=== PATIENT | female | born 1940 | race Caucasian/White ===

== ENCOUNTER 2019-09-20 07:39 | Outpatient (CLI) | payer MEDICARE, SELFPAY ==
[2019-09-20 08:11] LABS: Basophils Absolute Auto 0.1 K/mm3 (0.0-0.1); Basophils Percent Auto 0.7 % (0.2-1.2); Eosinophils Absolute Auto 0.2 K/mm3 (0-0.3); Eosinophils Percent Auto 2.4 % (0-4.4); Hematocrit 41.9 % (37.0-47.0); Hemoglobin 13.3 g/dL (12.0-15.0); Immature Granulocyte Absolute 0.02 K/mm3 (0.00-0.031); Immature Granulocyte Percent A 0.3 % (0-0.5); Lymphocytes Absolute Auto 2.47 K/mm3 (0.9-3.2); Mean Corpuscular HGB Conc 31.7 g/dl (32-36); Mean Corpuscular Hemoglobin 28.5 pg (26-34); Mean Corpuscular Volume 89.7 fl (80-100); Mean Platelet Volume 9.8 fl (7.4-10.4); Monocytes Absolute Auto 0.6 K/mm3 (0.1-0.6); Monocytes Percent Auto 8.3 % (2.6-8.5); Neutrophils Absolute Auto 4.2 K/mm3 (1.3-6.7); Neutrophils Percent Auto 55.3 % (45.5-73.1); Platelet Count Result 304 k/mm3 (150-375); Red Blood Count 4.67 M/mm3 (4.2-5.4); Red Cell Distribution Width 13.4 % (11.5-14.5); White Blood Count 7.5 K/mm3 (4.5-10.0)
[2019-09-20 08:23] LABS: Alanine Aminotransferase 26 U/L (4-35); Albumin Level 4.6 g/dL (3.5-5.1); Alkaline Phosphatase 76 U/L (38-126); Aspartate Amino Transferase 32 U/L (14-36); Bilirubin,Total 0.6 mg/dL (0.2-1.3); Blood Urea Nitrogen 26 mg/dL (7-17); Calcium 9.6 mg/dL (8.4-10.2); Carbon Dioxide 33 mmol/L (22-30); Chloride 98 mmol/L (98-107); Cholesterol 278 mg/dL (0-200); Estimated Glomerular Filt Rate > 60; Glucose 169 mg/dL (65-105); HDL Direct 49 mg/dL; Potassium 3.4 mmol/L (3.4-5.0); Sodium 138 mmol/L (137-145); Triglycerides 160 mg/dL (<150)
[2019-09-20 08:35] LABS: LDL Cholesterol Direct 172 mg/dL
[2019-09-20 08:41] LABS: Hemoglobin A1C 6.6 % (<5.7)
[2019-09-20 08:56] LABS: MALB Creatinine Ratio 31.4 mg/g (0-30); Microalbumin Urine Random 56.8 mg/L (0-16.7)
[2019-09-20 09:04] LABS: Vitamin D 25 Hydroxy 63.4 ng/mL
== END 2019-09-20 07:40 | disposition home or self-care (01) ==
PROVIDERS: PCP Internal Medicine; Visit Provider Internal Medicine
DX: E11.69 Type 2 diabetes mellitus with other specified complication (principal); E55.9 Vitamin D deficiency, unspecified; E78.5 Hyperlipidemia, unspecified; Z79.899 Other long term (current) drug therapy
CPT/HCPCS: 36415; 80053; 80061; 82043; 82306; 83036; 84443; 85025

== ENCOUNTER 2019-10-14 08:40 | Outpatient (CLI) | payer MEDICARE, SELFPAY ==
--- NOTE | 2019-10-14 09:07 | ECHO_ITS ---
Patient Info Name: May Hameed Age: 78 years : 1940 Gender: Female Ht: 64 in Wt: 230 lbs BSA: 2.22 m2 HR: 60 bpm BP: 154 / 85 mmHg Technical Quality: Good Exam Date: 10/14/2019 9:28 AM Exam Location: [facility] Pulmonary Patient Status: Outpatient Admit Date: 10/14/2019 Staff Ordering Physician: Kristofer Carter MD Boom Master: Regulo Arnett, SHERRIE, RT Attending Provider: Kristofer Carter MD Exam Type: CA echo doppler color flow Study Info Indications R06.02 - Shortness of breath Complete two-dimensional, color flow and Doppler transthoracic echocardiogram is performed. Summary 1. Left ventricular chamber dimension is normal. 2. Left ventricular systolic function is normal, estimated at 60-65%. 3. The left ventricular diastolic function is abnormal. 4. E/e' 11 is mildly elevated. 5. Global longitudinal strain is normal at -18.9%. 6. Right atrial chamber dimension is mildly enlarged. 7. There is mild aortic valve sclerosis. 8. The mitral valve has mildly calcified annulus. 9. There is mild mitral valve regurgitation. 10. There is mild tricuspid valve regurgitation. 11. No pulmonary hypertension, estimated pulmonary arterial systolic pressure is 32 mmHg. 12. Dilated inferior vena cava with >50% collapse upon inspiration consistent with elevated right atrial pressure, 10 mmHg. Left Ventricle E/e' 11 is mildly elevated. Global longitudinal strain is normal at -18.9%. Left ventricular chamber dimension is normal. Left ventricular systolic function is normal, estimated at 60-65%. The left ventricular diastolic function is abnormal. Right Ventricle Right ventricular chamber dimension is normal. Right ventricular systolic function is normal. Left Atria Left atrial chamber dimension is normal. Right Atria Right atrial chamber dimension is mildly enlarged. Aortic Valve The aortic valve is probable trileaflet. There is mild aortic valve sclerosis. There is no aortic valve stenosis. There is no aortic valve regurgitation. Pulmonic Valve There is no pulmonic regurgitation. Mitral Valve The mitral valve has mildly calcified annulus. There is no mitral valve stenosis. There is mild mitral valve regurgitation. Tricuspid Valve There is mild tricuspid valve regurgitation. No pulmonary hypertension, estimated pulmonary arterial systolic pressure is 32 mmHg. Pericardium/Pleural There is no pericardial effusion. Inferior Vena Cava Dilated inferior vena cava with >50% collapse upon inspiration consistent with elevated right atrial pressure, 10 mmHg. Aorta The aortic root size at the sinus of Valsalva is normal. Left Ventricular Outflow Tract Name Value Normal LVOT 2D LVOT Diameter 2.0 cm LVOT Doppler LVOT Peak Gradient 2 mmHg LVOT Mean Gradient 1 mmHg LVOT VTI 17 cm LVOT VTI/AV VTI Ratio 0.6 LVOT Stroke Volume 52 ml LVOT CO 3.2 l/min LVOT CI 1.5 l/min/m2
--- NOTE | 2019-10-14 09:09 | ECG_ITS ---
Measurements Intervals [place] Rate: 59 P: AR: 0 QRS: 40 QRSD: 97 T: 53 QT: 430 QTc: 428 Interpretive Statements SINUS BRADYCARDIA ATRIAL PREMATURE COMPLEXES LOW QRS VOLTAGE IN PRECORDIAL LEADS BORDERLINE ECG Electronically Signed On 10-14-2019 10:57:10 CDT by Bob Randhawa D.O.
== END 2019-10-14 08:41 | disposition home or self-care (01) ==
PROVIDERS: PCP Internal Medicine; Visit Provider Internal Medicine
DX: I51.89 Other ill-defined heart diseases (principal); I10 Essential (primary) hypertension; I51.7 Cardiomegaly
CPT/HCPCS: 93005; 93306

== ENCOUNTER 2020-03-23 11:46 | Outpatient (CLI) | payer MEDICARE, SELFPAY ==
[2020-03-23 12:16] LABS: Basophils Percent Auto 0.6 % (0.2-1.2); Eosinophils Absolute Auto 0.1 K/mm3 (0-0.3); Hemoglobin 13.5 g/dL (12.0-15.0); Immature Granulocyte Absolute 0.01 K/mm3 (0.00-0.031); Immature Granulocyte Percent A 0.2 % (0-0.5); Lymphocytes Absolute Auto 1.57 K/mm3 (0.9-3.2); Lymphocytes Percent Auto 23.9 % (18.3-44.2); Mean Corpuscular HGB Conc 32.1 g/dl (32-36); Mean Platelet Volume 10.3 fl (7.4-10.4); Monocytes Absolute Auto 0.5 K/mm3 (0.1-0.6); Monocytes Percent Auto 7.5 % (2.6-8.5); Neutrophils Absolute Auto 4.3 K/mm3 (1.3-6.7); Neutrophils Percent Auto 65.8 % (45.5-73.1); Platelet Count Result 261 k/mm3 (150-375); Red Blood Count 4.83 M/mm3 (4.2-5.4); Red Cell Distribution Width 14.1 % (11.5-14.5); White Blood Count 6.6 K/mm3 (4.5-10.0)
[2020-03-23 12:53] LABS: Alanine Aminotransferase 22 U/L (4-35); Albumin Level 4.2 g/dL (3.5-5.1); Alkaline Phosphatase 68 U/L (38-126); Anion Gap 5 mmol/L (8-16); Aspartate Amino Transferase 28 U/L (14-36); Bilirubin,Total 0.6 mg/dL (0.2-1.3); Blood Urea Nitrogen 16 mg/dL (7-17); Calcium 9.4 mg/dL (8.4-10.2); Carbon Dioxide 33 mmol/L (22-30); Chloride 100 mmol/L (98-107); Cholesterol 247 mg/dL (0-200); Estimated Glomerular Filt Rate > 60; Glucose 120 mg/dL (65-105); HDL Direct 61 mg/dL; Potassium 4.1 mmol/L (3.4-5.0); Sodium 138 mmol/L (137-145); Triglycerides 153 mg/dL (<150)
[2020-03-23 13:03] LABS: Hemoglobin A1C 5.9 % (<5.7)
[2020-03-23 13:04] LABS: LDL Cholesterol Direct 160 mg/dL
[2020-03-23 13:37] LABS: Creatinine Urine 64.3 mg/dL
[2020-03-23 13:42] LABS: MALB Creatinine Ratio 220.1 mg/g (0-30); Microalbumin Urine Random 141.5 mg/L (0-16.7)
== END 2020-03-23 11:47 | disposition home or self-care (01) ==
PROVIDERS: PCP Internal Medicine; Visit Provider Internal Medicine
DX: E11.29 Type 2 diabetes mellitus with other diabetic kidney complication (principal); R80.9 Proteinuria, unspecified
CPT/HCPCS: 36415; 80053; 80061; 82043; 83036; 85025

== ENCOUNTER 2020-03-31 15:02 | Outpatient (CLI) | payer MEDICARE, SELFPAY ==
[2020-03-31 15:41] LABS: Anion Gap 4 mmol/L (8-16); Blood Urea Nitrogen 21 mg/dL (7-17); Calcium 9.7 mg/dL (8.4-10.2); Carbon Dioxide 34 mmol/L (22-30); Chloride 100 mmol/L (98-107); Estimated Glomerular Filt Rate 54; Glucose 103 mg/dL (65-105); Potassium 4.3 mmol/L (3.4-5.0); Sodium 138 mmol/L (137-145)
[2020-03-31 16:47] LABS: Folic Acid 10.1 ng/mL (2.76->20)
== END 2020-03-31 15:03 | disposition home or self-care (01) ==
LOC: ANHLAB 15:04
PROVIDERS: PCP Internal Medicine; Visit Provider Internal Medicine
DX: N18.30 Chronic kidney disease, stage 3 unspecified (principal); E11.29 Type 2 diabetes mellitus with other diabetic kidney complication; R80.9 Proteinuria, unspecified; G62.9 Polyneuropathy, unspecified; R60.0 Localized edema
CPT/HCPCS: 36415; 80048; 82607; 82746

== ENCOUNTER 2020-07-15 09:43 | Outpatient (CLI) | payer MEDICARE, SELFPAY ==
[2020-07-15 10:20] LABS: Basophils Percent Auto 0.5 % (0.2-1.2); Eosinophils Absolute Auto 0.2 K/mm3 (0-0.3); Eosinophils Percent Auto 2.2 % (0-4.4); Hematocrit 37.9 % (37.0-47.0); Hemoglobin 12.7 g/dL (12.0-15.0); Immature Granulocyte Absolute 0.03 K/mm3 (0.00-0.031); Immature Granulocyte Percent A 0.4 % (0-0.5); Lymphocytes Absolute Auto 1.81 K/mm3 (0.9-3.2); Lymphocytes Percent Auto 23.4 % (18.3-44.2); Mean Corpuscular HGB Conc 33.5 g/dl (32-36); Mean Corpuscular Hemoglobin 28.6 pg (26-34); Mean Corpuscular Volume 85.4 fl (80-100); Mean Platelet Volume 9.7 fl (7.4-10.4); Monocytes Absolute Auto 0.6 K/mm3 (0.1-0.6); Monocytes Percent Auto 8.3 % (2.6-8.5); Neutrophils Absolute Auto 5.1 K/mm3 (1.3-6.7); Neutrophils Percent Auto 65.2 % (45.5-73.1); Platelet Count Result 269 k/mm3 (150-375); Red Blood Count 4.44 M/mm3 (4.2-5.4); Red Cell Distribution Width 14.6 % (11.5-14.5); White Blood Count 7.8 K/mm3 (4.5-10.0)
[2020-07-15 10:33] LABS: Alanine Aminotransferase 23 U/L (4-35); Albumin Level 4.3 g/dL (3.5-5.1); Alkaline Phosphatase 67 U/L (38-126); Anion Gap 4 mmol/L (8-16); Aspartate Amino Transferase 28 U/L (14-36); Bilirubin,Total 0.5 mg/dL (0.2-1.3); Blood Urea Nitrogen 30 mg/dL (7-17); Calcium 9.3 mg/dL (8.4-10.2); Carbon Dioxide 32 mmol/L (22-30); Chloride 103 mmol/L (98-107); Cholesterol 242 mg/dL (0-200); Estimated Glomerular Filt Rate 48; Glucose 143 mg/dL (65-105); HDL Direct 58 mg/dL; Potassium 3.7 mmol/L (3.4-5.0); Sodium 139 mmol/L (137-145); Triglycerides 157 mg/dL (<150)
[2020-07-15 10:40] LABS: Hemoglobin A1C 6.3 % (<5.7)
[2020-07-15 10:42] LABS: Creatinine Urine 173.6 mg/dL
[2020-07-15 10:44] LABS: LDL Cholesterol Direct 135 mg/dL
[2020-07-15 10:50] LABS: MALB Creatinine Ratio 83.2 mg/g (0-30); Microalbumin Urine Random 144.5 mg/L (0-16.7)
== END 2020-07-15 09:44 | disposition home or self-care (01) ==
LOC: ANHLAB 09:46
PROVIDERS: PCP Internal Medicine; Visit Provider Internal Medicine
DX: E11.29 Type 2 diabetes mellitus with other diabetic kidney complication (principal); R80.9 Proteinuria, unspecified; N18.30 Chronic kidney disease, stage 3 unspecified; E11.69 Type 2 diabetes mellitus with other specified complication; E78.5 Hyperlipidemia, unspecified
CPT/HCPCS: 36415; 80053; 80061; 82043; 83036; 85025

== ENCOUNTER 2020-08-18 14:58 | Inpatient (IN) | payer MEDICARE, OTHER, SELFPAY ==
--- NOTE | ~2020-08-18 | CT_ITS ---
EXAMINATION: CT abdomen pelvis w con DATE: 08/18/2020 16:40 INDICATION: Epigastric abdominal pain. TECHNIQUE: Computed tomography (CT) of the abdomen and pelvis was performed with 100 mL Omnipaque 350 intravenous contrast. Automated exposure control and iterative reconstruction technique were employe d. The dose-length product was 1286.32 mGy-cm. COMPARISON: CT chest 09/27/2013 FINDINGS: The visualized portions of the lung bases demonstrate mild atelectasis. A calcified right l lucien nodule is consistent with old granulomatous disease. No pleural effusion. The heart size is michael l. No pericardial effusion. The liver is normal. Calcifications in the spleen are consistent with old granulomatous disease. The gallbladder is normal in size. Material in gallbladder may be sludge or s tones. The pancreas and adrenal glands are normal. There is cortical thinning of the kidneys. There a re scattered diverticula in the colon. There is wall thickening throughout the colon with mucosal hyp eremia, consistent with colitis. The appendix is not visualized. There are no pathologically enlarged lymph nodes. There is no free intraperitoneal fluid. There is mild lumbar spondylosis. IMPRESSION: 1. Pancolitis. Reviewed, dictated and finalized at location A. IMPRESSION: 1. Pancolitis.
[2020-08-18 15:00] VITALS: BP 109/61; PULSE 76; RESP 20; TEMP 36.1; O2SAT 98
--- NOTE | 2020-08-18 15:19 | PC.NURSE ---
Arrives from [facility], s/p MRSA and Cdiff infections since late June, recent increase in antibiotics, here for abnormal labs drawn yesterday (elevated BUN and Cr). C/o pain to every part of my body x2-3 weeks, has been taking [place] (last dose today, cannot recall time). C/o ongoing diarrhea, last vomited early this morning
[2020-08-18 16:04] LABS: Hematocrit 39.5 % (37.0-47.0); Hemoglobin 12.7 g/dL (12.0-15.0); Mean Corpuscular HGB Conc 32.2 g/dl (32-36); Mean Corpuscular Hemoglobin 27.4 pg (26-34); Mean Corpuscular Volume 85.1 fl (80-100); Mean Platelet Volume 9.4 fl (7.4-10.4); Platelet Count Result 377 k/mm3 (150-375); Red Blood Count 4.64 M/mm3 (4.2-5.4); Red Cell Distribution Width 14.2 % (11.5-14.5); White Blood Count 23.7 K/mm3 (4.5-10.0)
[2020-08-18 16:14] LABS: Lactic Acid Reflex 1.8 mmol/L (0.7-2.1)
[2020-08-18 16:17] LABS: Band Neutrophils Percent 11 % (0-6); Eosinophils Absolute Manual 0.47 K/mm3 (0.02-0.5); Eosinophils Percent Manual 2 % (0-4); Lymphocytes Absolute Manual 1.42 K/mm3 (1.1-4.5); Lymphocytes Percent Manual 6 % (18-44); Monocytes Absolute Manual 0.47 K/mm3 (0.1-0.90); Monocytes Percent Manual 2 % (3-9); Neutrophils Absolute Manual 21.33 K/mm3 (1.7-7.2); Neutrophils Percent Manual 79 % (46-73); Total Cells Counted 100
[2020-08-18 16:20] LABS: Anion Gap 11 mmol/L (8-16); Blood Urea Nitrogen 40 mg/dL (7-17); Calcium 8.4 mg/dL (8.4-10.2); Carbon Dioxide 24 mmol/L (22-30); Chloride 100 mmol/L (98-107); Estimated CRCL calculation 39 ml/min; Estimated Glomerular Filt Rate 44; Glucose 117 mg/dL (65-105); Potassium 4.4 mmol/L (3.4-5.0); Sodium 135 mmol/L (137-145)
--- NOTE | 2020-08-18 16:44 | ED.GENADULT ---
HPI - General Adult General Chief complaint: Recheck/Abnormal Lab/Rx Stated complaint: cellulitis Time Seen by Provider: 08/18/20 15:03 History of Present Illness HPI narrative: Patient is a 79-year-old female who presents ER with what she reports is abnormal lab work. Patient reports her weeks ago she was admitted at [facility] after a trip and fall left her with a wound on her leg. She ended up being treated with antibiotics and subsequently developed a C. difficile infection of her colon. She was admitted to her alf facility for adult failure to thrive as well as her infections. Paperwork shows patient is taking oral vancomycin and metronidazole. Related Data Home Medications Medication Instructions Recorded Confirmed acetaminophen 650 mg 650 mg PO Q12H PRN 08/21/19 07/15/20 tablet,extended release magnesium aspartate HCl 61 mg (615 61 mg PO DAILY 09/20/19 07/15/20 mg) tablet,delayed release Bacillus coagulans 2 billion cap PO 09/24/19 07/15/20 cell-calcium 140 mg capsule Allergies Allergy/AdvReac Type Severity Reaction Status Date / Time No Known Allergies Allergy Verified 03/24/20 08:58 Review of Systems Review of Systems: All systems reviewed & are unremarkable except as noted in HPI and below Constitutional: Constitutional: Denies chills and Denies fever(s) ENT: Denies nasal congestion and Denies sore throat Cardiovascular: Cardiovascular: Denies chest pain, Denies rapid heart rate and Denies radiating jaw, neck or arm pain Respiratory: Respiratory: Denies cough and Denies dyspnea Gastrointestinal: Gastrointestinal: Reports abdominal pain, Reports diarrhea, Denies nausea and Denies vomiting Integumentary/Breasts: Comments: Chronic right lower extremity wound [facility] Past Medical History Medical History (Updated 08/18/20 @ 17:07 by Paul Gomes MD) C. difficile colitis CKD (chronic kidney disease) stage 3, GFR 30-59 ml/min COPD (chronic obstructive pulmonary disease) Diabetes mellitus Diastolic dysfunction Dyslipidemia associated with type 2 diabetes mellitus Hyperlipidemia Lymphedema Family History Family History Sibling Family history of gynecological problem Father Malignant neoplasm of prostate Family history of diabetes mellitus in first degree relative Diabetes mellitus, Onset Age: 84 Grandparent Cerebrovascular accident, Onset Age: 65 Mother Family history of Parkinson's disease, Onset Age: 88 Social History Social History Alcohol intake: current Exam Narrative: Exam Narrative: GENERAL: Well-appearing, obese, and in no acute distress. HEAD: Normocephalic, atraumatic. ENT: Mucous membranes moist. CHEST: Clear to auscultation. No respiratory distress. HEART: Tachycardic and regular normal peripheral pulses. ABDOMEN: Soft, diffusely tender with guarding, protuberant abdomen. EXTREMITIES: Normal range of motion. Chronic lower extremity lymphedema. Wound to the right das that is dressed and has no evidence of cellulitis. SKIN: Warm, dry, no rash. NEURO: Alert and oriented x3. PSYCH: Normal mood and affect. Course Course Emergency Course: Admit to hospitalist service. Will start on diet for said and IV Flagyl. Vital Signs Vital signs: Vital Signs Temperature 96.9 F L 08/18/20 15:00 Pulse Rate 76 08/18/20 15:00 Respiratory Rate 20 08/18/20 15:00 Blood Pressure 109/61 08/18/20 15:00 Pulse Oximetry 98 08/18/20 15:00 Temperature 96.9 F L 08/18/20 15:00 Pulse Rate 76 08/18/20 15:00 Respiratory Rate 20 08/18/20 15:00 Blood Pressure 109/61 08/18/20 15:00 Pulse Oximetry 98 08/18/20 15:00 Medical Decision Making Vital Signs Vital Signs: Vital Signs Temperature 96.9 F L 08/18/20 15:00 Pulse Rate 76 08/18/20 15:00 Respiratory Rate 20
--- NOTE | 2020-08-18 16:45 | PC.NURSE ---
Pt had x1 small loose BM, incontinent care provided and Depends changed. Repositioned on cart HOB elevated. Water provided, OK by Dr Gomes. Pt states you know what, I feel like I need IV fluids
[2020-08-18] MEDS: SODIUM CHLORIDE 0.9% IV 1,000 ML 999 ML IV CONT (18:06)
[2020-08-18] MEDS: metroNIDAZOLE 500 MG/ISO 100ML 500 MG/100 ML BAG 100 MG IVPB (18:08)
[2020-08-18 18:13] VITALS: BP 129/51; PULSE 72; RESP 15; O2SAT 97
--- NOTE | 2020-08-18 19:52 | PC.NURSE ---
This patient, May Hameed, was admitted to 3 Med Surg Room 303-01 @19:30. Patient/family oriented to hospital policies and general routines including ID bracelet, bed and alarms, visiting hours, pain management, procedures, bathroom and other care routines, personal items, smoking policy, room service/diet, and visiting hours. Information on how to activate the Rapid Response Team has been discussed. Patient/Family are encouraged to report perceived risks to care and to ask questions if they do not understand what they are told or what they should do.
[2020-08-18 21:19] VITALS: BMI 36.1
[2020-08-18 21:32] VITALS: BP 135/46; PULSE 86; RESP 18; TEMP 36.4; O2SAT 98
--- NOTE | 2020-08-18 22:11 | PM.IMHP ---
H&P: HPI History of Present Illness Date/Time: 08/18/20 22:11Manuel is a 79-year-old female patient who is from [facility]. The patient recently was treated for an infection to her right lower leg at [facility] in [place] and then the patient developed C difficile I will from that. The patient was sent here from the residential due to elevated white count. White count was noted to be 23.7 and her platelets 377. The patient continues to have loose diarrhea Stools even though she is taking p.o. vancomycin. The patient had a CT of the abdomen and pelvis CT [facility] that was read as miles colitis. On Flagyl and IV fluids. Patient stated that she feels very weak. At the residential, the patient is being treated for failure to thrive in an adult. The patient is being admitted for observation status on the date of service of 08/18/2020. Chief Complaint: Elevated white count Review of Systems Review of Systems: All systems reviewed & are unremarkable except as noted in HPI and below Constitutional: Constitutional: Reports as per HPI and Reports no additional constitutional complaints Eyes: Eyes: Reports as per HPI and Reports no additional eye complaints ENT: Reports system reviewed and no additional complaints, except as documented and Reports Normal hearing present Cardiovascular: Cardiovascular: Reports no additional cardiovascular complaints Respiratory: Respiratory: Reports no additional respiratory complaints and Reports no additional respiratory complaints Gastrointestinal: Gastrointestinal: Reports as per HPI and Reports no additional gastrointestinal complaints Musculoskeletal: Musculoskeletal: Reports no additional musculoskeletal complaints Integumentary/Breasts: Skin/Breast: Reports system reviewed and no additional complaints, except as docu and Reports as per HPI Neurologic: Reports system reviewed and no additional complaints, except as documented, Reports as per HPI and Reports Normal hearing present Psychiatric: Psychiatric: Reports no additional psychiatric complaints and Reports as per HPI Endocrine: Endocrine: Reports no additional endocrine complaints Hematologic/Lymphatic: Hematologic/Lymphatic: Reports no additional hematologic/lymphatic complaints Allergic/Immunologic: Allergic/Immunologic: Reports no additional allergic/immunologic complaints [facility] Past Medical History Medical History C. difficile colitis CKD (chronic kidney disease) stage 3, GFR 30-59 ml/min COPD (chronic obstructive pulmonary disease) Diabetes mellitus Diastolic dysfunction Dyslipidemia associated with type 2 diabetes mellitus Hyperlipidemia Lymphedema Surgical History Surgical History (Updated 08/18/20 @ 22:31 by Yahaira Moe NP) H/O cataract extraction History of appendectomy Family History Family History Sibling Family history of gynecological problem Father Malignant neoplasm of prostate Family history of diabetes mellitus in first degree relative Diabetes mellitus, Onset Age: 84 Grandparent Cerebrovascular accident, Onset Age: 65 Mother Family history of Parkinson's disease, Onset Age: 88 Social History Social History (Updated 08/18/20 @ 22:20 by Yahaira Moe NP) Social History: The patient used to smoke cigarettes. The patient admits to me that prior to going to [facility] that she had been taking multiple substances from the daughter that she was living with. The patient stated I was a junky . 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 Her 2 daughters of the durable power attorney general for healthcare. The patient desires to be a full code. Smoking status: Former smok
[2020-08-18] MEDS: ONDANSETRON INJ 4 MG/2 ML VIAL IV PUSH (22:25)
[2020-08-18] MEDS: FIDAXOMICIN 200 MG TABLET PO (22:25)
[2020-08-18 22:33] LABS: Glucose Point of Care 114 mg/dl (65-105)
[2020-08-18] MEDS: HYDROcodone/acetaminophen (*CRX) 5-325 MG TABLET 1 TAB PO (23:24)
[2020-08-18 23:55] VITALS: O2SAT 97
[2020-08-19] MEDS: metroNIDAZOLE 500 MG/ISO 100ML 500 MG/100 ML BAG 100 MG IVPB (01:07)
[2020-08-19] MEDS: SODIUM CHLORIDE 0.9% IV 1,000 ML 125 ML IV CONT ×3 (01:09→18:16)
[2020-08-19 05:44] LABS: Basophils Absolute Auto 0.1 K/mm3 (0.0-0.1); Basophils Percent Auto 0.4 % (0.2-1.2); Eosinophils Absolute Auto 0.3 K/mm3 (0-0.3); Eosinophils Percent Auto 1.4 % (0-4.4); Hematocrit 33.1 % (37.0-47.0); Hemoglobin 10.8 g/dL (12.0-15.0); Immature Granulocyte Absolute 0.76 K/mm3 (0.00-0.031); Immature Granulocyte Percent A 3.3 % (0-0.5); Lymphocytes Absolute Auto 0.78 K/mm3 (0.9-3.2); Lymphocytes Percent Auto 3.4 % (18.3-44.2); Mean Corpuscular HGB Conc 32.6 g/dl (32-36); Mean Corpuscular Hemoglobin 27.3 pg (26-34); Mean Corpuscular Volume 83.6 fl (80-100); Mean Platelet Volume 9.3 fl (7.4-10.4); Monocytes Absolute Auto 0.9 K/mm3 (0.1-0.6); Monocytes Percent Auto 3.8 % (2.6-8.5); Neutrophils Absolute Auto 20.3 K/mm3 (1.3-6.7); Neutrophils Percent Auto 87.7 % (45.5-73.1); Platelet Count Result 319 k/mm3 (150-375); Red Blood Count 3.96 M/mm3 (4.2-5.4); White Blood Count 23.1 K/mm3 (4.5-10.0)
[2020-08-19 05:52] VITALS: BP 109/47; PULSE 72; RESP 18; TEMP 37.2; O2SAT 95
[2020-08-19 05:54] LABS: Lactic Acid Reflex 1.3 mmol/L (0.7-2.1)
[2020-08-19 05:57] LABS: Hemoglobin A1C 6.9 % (<5.7)
[2020-08-19 05:58] LABS: Alanine Aminotransferase 20 U/L (4-35); Albumin Level 2.5 g/dL (3.5-5.1); Alkaline Phosphatase 127 U/L (38-126); Anion Gap 8 mmol/L (8-16); Aspartate Amino Transferase 34 U/L (14-36); Bilirubin,Total 0.3 mg/dL (0.2-1.3); Blood Urea Nitrogen 41 mg/dL (7-17); Calcium 8.1 mg/dL (8.4-10.2); Carbon Dioxide 20 mmol/L (22-30); Chloride 105 mmol/L (98-107); Estimated CRCL calculation 36 ml/min; Estimated Glomerular Filt Rate 40; Glucose 160 mg/dL (65-105); Lipase 82 U/L (23-300); Magnesium 2.7 mg/dL (1.6-2.3); Potassium 4.5 mmol/L (3.4-5.0); Sodium 133 mmol/L (137-145)
[2020-08-19] MEDS: VANCOMYCIN ORAL 125 MG/2.5 ML SYRUP PO ×3 (08:57→18:18)
[2020-08-19] MEDS: ENOXAPARIN 40 MG/0.4 ML SYRINGE SUB-Q (08:58)
[2020-08-19] MEDS: FIDAXOMICIN 200 MG TABLET PO ×2 (08:58→20:17)
[2020-08-19] MEDS: FAMOTIDINE 20 MG/2 ML VIAL IV PUSH ×2 (08:58→20:17)
[2020-08-19] MEDS: SILVERGEL (ELTA) 45 ML 1 APPLIC TOPICAL (10:44)
[2020-08-19 11:04] LABS: Glucose Point of Care 172 mg/dl (65-105)
[2020-08-19 11:35] LABS: Glucose Point of Care 196 mg/dl (65-105)
[2020-08-19] MEDS: HYDROcodone/acetaminophen (*CRX) 5-325 MG TABLET 1 TAB PO (12:46)
[2020-08-19 14:00] VITALS: BP 113/48; PULSE 67; RESP 16; TEMP 35.8; O2SAT 96
[2020-08-19] MEDS: SALINE LOCK FLUSH 10 ML IV PUSH ×2 (14:24→20:17)
--- NOTE | 2020-08-19 15:40 | PM.IMPN ---
Progress Note: A&P Assessment and Plan (1) C. difficile colitis: Code(s): A04.72 - Enterocolitis due to Clostridium difficile, not specified as recurrent Status: Acute Assessment and Plan: The patient received antibiotics at [facility] for her right lower extremity cellulitis. Patient moved to [facility] on 07/30/20. Stool study was positive for CDiff on 08/17/20; WBC 19.8. She was started on Flagyl and Vanco at the facility but was admitted here a short time later. CT abdomen/pelvis showing pancolitis. WBC here 23.7 on admission. The patient was started on IV Flagyl and Dificid but Vanco added and Flagyl stopped. WBC about the same. Diarrhea with some mild improvement per patient. Continue current treatment plan. Consider GI consult if she does not improve as expected. Start PT/OT. Appreciate ID input. (2) CKD (chronic kidney disease) stage 3, GFR 30-59 ml/min: Code(s): N18.3 - Chronic kidney disease, stage 3 (moderate) Status: Acute Assessment and Plan: Cr 1.2 on admission. Cr 1.3 at the SNF drawn just prior to admission. Repeat Cr today about the same. Currently on IV fluids. Continue to monitor. Continue fluids. (3) COPD (chronic obstructive pulmonary disease): Qualifiers: COPD type: unspecified COPD Qualified Code(s): J44.9 - Chronic obstructive pulmonary disease, unspecified Code(s): J44.9 - Chronic obstructive pulmonary disease, unspecified Status: Acute Assessment and Plan: Stable. No wheezing. Not requiring O2. Continueto monitor. (4) Diabetes mellitus: Qualifiers: Diabetes mellitus complication detail: with microalbuminuria Diabetes mellitus complication status: with kidney complications Diabetes mellitus fdc insulin use: without waterworks chief engineer use Diabetes mellitus type: type 2 Qualified Code(s): E11.29 - Type 2 diabetes mellitus with other diabetic kidney complication; R80.9 - Proteinuria, unspecified Code(s): E11.9 - Type 2 diabetes mellitus without complications Status: Acute Assessment and Plan: A1c 6.9. The patient's blood glucose was reviewed on 08/19 Glucose remains reasonably well controlled running 110-190. Continue AccuCheks covering with sliding scale. Hypoglycemia protocol available as needed. Continue to monitor (5) SKYLER (obstructive sleep apnea): Code(s): G47.33 - Obstructive sleep apnea (adult) (pediatric) Status: Acute Assessment and Plan: Auto titrate CPAP ordered but patient tole RT to remove mask immediately. Patietn concern that the mask harbors bacteria. RT explained the benefits but to no avail (6) Diastolic dysfunction: Code(s): I51.89 - Other ill-defined heart diseases Status: Acute Assessment and Plan: Echo in May 2019 showing EF 60-65% and diastolic dysfunction. Lasix on hold. Monitor fluid status closely. (7) Ulcer of right leg: Code(s): L97.919 - Non-pressure chronic ulcer of unspecified part of right lower leg with unspecified severity Status: Acute Assessment and Plan: expansion joint finisher consulted. Continue current wound care. (8) DVT prophylaxis: Code(s): Z29.9 - Encounter for prophylactic measures, unspecified Status: Acute Assessment and Plan: Lovenox Subjective Date/time seen: 08/19/20 15:40 Interval history: 79yo female with COPD, CKD and DM here for CDiff diarrhea. Patient has not been able to get up to chair for over a week due to diffuse weakness from the diarrhea. She was able walk and lived at [facility] prior to becoming ill. She states diarrhea improved. Still with abdominal pain. Has chronic RLE wound. Eating okay. Exam Narrative: Exam Narrative: AF 98.9 109/47 72 18 95% ra Gen - NARD lying flat in bed Chest -few basilar rhonchi otherwise clear. CV - RRR S1/S2 Abd -soft. Distended and tympanitic but n
[2020-08-19 18:04] LABS: Glucose Point of Care 109 mg/dl (65-105)
[2020-08-19] MEDS: ONDANSETRON INJ 4 MG/2 ML VIAL IV PUSH (18:20)
[2020-08-19 21:29] VITALS: BP 135/55; PULSE 60; RESP 18; TEMP 37; O2SAT 97
[2020-08-19 21:36] LABS: Glucose Point of Care 136 mg/dl (65-105)
[2020-08-20] MEDS: VANCOMYCIN ORAL 125 MG/2.5 ML SYRUP PO ×5 (00:29→23:06)
[2020-08-20] MEDS: ONDANSETRON INJ 4 MG/2 ML VIAL IV PUSH ×4 (00:31→23:06)
[2020-08-20] MEDS: SODIUM CHLORIDE 0.9% IV 1,000 ML 125 ML IV CONT ×2 (02:20→16:05)
[2020-08-20] MEDS: SALINE LOCK FLUSH 20 ML IV PUSH (05:31)
[2020-08-20] MEDS: SALINE LOCK FLUSH 10 ML IV PUSH ×3 (05:31→20:51)
[2020-08-20 06:00] VITALS: BP 136/51; PULSE 65; RESP 18; TEMP 36.9; O2SAT 96
--- NOTE | 2020-08-20 06:05 | PC.NURSE ---
for 6/ midline infiltrated not functional for lab draws. Spoke to Roxanne in lab about getting a suggestion clerk upstairs for lab draws and left midline in place.
[2020-08-20 07:57] LABS: Glucose Point of Care 107 mg/dl (65-105)
[2020-08-20 08:20] LABS: Basophils Absolute Auto 0.1 K/mm3 (0.0-0.1); Basophils Percent Auto 0.6 % (0.2-1.2); Eosinophils Absolute Auto 0.4 K/mm3 (0-0.3); Eosinophils Percent Auto 2.1 % (0-4.4); Hemoglobin 10.6 g/dL (12.0-15.0); Immature Granulocyte Absolute 0.74 K/mm3 (0.00-0.031); Immature Granulocyte Percent A 4.2 % (0-0.5); Lymphocytes Absolute Auto 1.08 K/mm3 (0.9-3.2); Lymphocytes Percent Auto 6.1 % (18.3-44.2); Mean Corpuscular HGB Conc 32.1 g/dl (32-36); Mean Corpuscular Hemoglobin 27.5 pg (26-34); Mean Corpuscular Volume 85.7 fl (80-100); Monocytes Absolute Auto 0.6 K/mm3 (0.1-0.6); Monocytes Percent Auto 3.4 % (2.6-8.5); Neutrophils Absolute Auto 14.8 K/mm3 (1.3-6.7); Neutrophils Percent Auto 83.6 % (45.5-73.1); Platelet Count Result 294 k/mm3 (150-375); Red Blood Count 3.85 M/mm3 (4.2-5.4); Red Cell Distribution Width 14.5 % (11.5-14.5); White Blood Count 17.7 K/mm3 (4.5-10.0)
[2020-08-20 08:29] LABS: Potassium 4.3 mmol/L (3.4-5.0)
[2020-08-20 08:34] LABS: Albumin Level 2.4 g/dL (3.5-5.1); Anion Gap 7 mmol/L (8-16); Blood Urea Nitrogen 20 mg/dL (7-17); Calcium 7.7 mg/dL (8.4-10.2); Carbon Dioxide 19 mmol/L (22-30); Chloride 110 mmol/L (98-107); Estimated CRCL calculation 47 ml/min; Estimated Glomerular Filt Rate 54; Glucose 115 mg/dL (65-105); Magnesium 2.6 mg/dL (1.6-2.3); Phosphorus 3.5 mg/dL (2.5-4.5); Sodium 136 mmol/L (137-145)
[2020-08-20] MEDS: HYDROcodone/acetaminophen (*CRX) 5-325 MG TABLET 1 TAB PO ×3 (09:00→17:37)
[2020-08-20] MEDS: ENOXAPARIN 40 MG/0.4 ML SYRINGE SUB-Q (09:02)
[2020-08-20] MEDS: FIDAXOMICIN 200 MG TABLET PO (09:02)
[2020-08-20] MEDS: FAMOTIDINE 20 MG/2 ML VIAL IV PUSH (09:03)
[2020-08-20] MEDS: SILVERGEL (ELTA) 45 ML 1 APPLIC TOPICAL (09:03)
[2020-08-20] MEDS: ALTEPLASE 2 MG VIAL (CATHFLO) 1 MG IV PUSH (09:22)
[2020-08-20 11:15] LABS: Glucose Point of Care 180 mg/dl (65-105)
--- NOTE | 2020-08-20 12:23 | WPDINFPN2 ---
Progress Note: A&P Assessment and Plan (1) C. difficile colitis: Code(s): A04.72 - Enterocolitis due to Clostridium difficile, not specified as recurrent Status: Acute Assessment and Plan: C diff infection. Traumatic ulcer R tibia, no current infection REC Oral Vanc through 08/31. Call if Qs Subjective Date/time seen: 08/20/20 12:23 Objective Data Vital Signs Vital Signs: Vital Signs - 24 hr 08/19/20 14:00 08/19/20 21:29 08/20/20 06:00 Temperature 35.8 C L 37.0 C 36.9 C Pulse Rate 67 60 65 Respiratory Rate 16 18 18 Blood Pressure 113/48 L 135/55 L 136/51 L Pulse Oximetry 96 97 96 Intake/Output Intake/Output: Intake & Output 08/17/20 08/18/20 08/19/20 08/20/20 23:59 23:59 23:59 23:59 Intake Total 1100 4220 1989 Balance 1100 4220 1989 Meds/Results Medications: Active Medications Generic Name Dose Route Start Last Admin Trade Name Freq PRN Reason Stop Dose Admin Acetaminophen 650 mg 08/18/20 17:05 Acetaminophen 325 Mg Tablet PO Q4H PRN Mild Pain (1-3) or Fever Hydrocodone Bitart/Acetaminophen 1 tab 08/18/20 17:05 08/20/20 09:00 Hydrocodone/Acetaminophen (*Crx) 5-325 Mg Tablet PO 1 tab Q4H PRN Administration Pain Rated 4-6 Alteplase, Recombinant 1 mg 08/20/20 08:53 08/20/20 09:22 Alteplase 2 Mg Vial (Cathflo) IV PUSH 1 mg ONCE PRN Administration Line Occlusion Dextrose 12.5 gm 08/18/20 22:27 Dextrose 50% 25 Gm/50 Ml Syringe IV PUSH PRN PRN Hypoglycemia Protocol Enoxaparin Sodium 40 mg 08/19/20 09:00 08/20/20 09:02 Enoxaparin 40 Mg/0.4 Ml Syringe SUB-Q 40 mg DAILY ADOLFO Administration Famotidine 20 mg 08/19/20 09:00 08/20/20 09:03 Famotidine 20 Mg/2 Ml Vial IV PUSH 20 mg Q12HR ADOLFO Administration Glucagon 1 mg 08/18/20 22:27 Glucagon For Inj 1 Mg Vial IM PRN PRN Hypoglycemia Protocol Glucose 15 gm 08/18/20 22:27 Glucose Oral Gel 15 Gm Of Glucse In 37.5 Gm Tube PO PRN PRN Hypoglycemia Protocol Sodium Chloride 1,000 mls @ 125 mls/hr 08/18/20 17:05 08/20/20 02:20 Normal Saline Iv IV CONT 125 mls/hr .Q8H ADOLFO Administration Dextrose 1,000 mls @ 100 mls/hr 08/18/20 22:27 Dextrose 5% 1,000 Ml IVPB PRN PRN Hypoglycemia Protocol Insulin Aspart 2 - 5 units 08/19/20 08:00 08/20/20 09:03 Insulin Aspart (*Bkc) 100 Units/Ml SUB-Q Not Given TIDWM ADOLFO Protocol Morphine Sulfate 4 mg 08/18/20 17:05 Morphine Sulfate (*Crx) 4 Mg/Ml Inj IV PUSH Q2H PRN Pain Rated 7-10 Ondansetron HCl 4 mg 08/18/20 17:05 08/20/20 05:41 Ondansetron Inj 4 Mg/2 Ml Vial IV PUSH 4 mg Q4H PRN Administration Nausea Silver Nitrate 1 applic 08/19/20 09:00 08/20/20 09:03 Silvergel (Elta) 45 Ml TOPICAL 1 applic DAILY ADOLFO Administration Sodium Chloride 10 ml 08/19/20 14:00 08/20/20 05:31 Saline Lock Flush IV PUSH 10 ml Q8HR ADOLFO Administration Sodium Chloride 10 ml 08/19/20 07:00 Saline Lock Flush IV PUSH PRN PRN Flush Sodium Chloride 20 ml 08/19/20 07:00 08/20/20 05:31 Saline Lock Flush IV PUSH 20 ml PRN PRN Administration after blood draws Vancomycin HCl 125 mg 08/19/20 08:35 08/20/20 05:30 Vancomycin Oral 125 Mg/2.5 Ml Syrup PO 08/31/20 23:59 125 mg Q6HR ADOLFO Administration Radiology Results: ITS Impressions Abdomen/Pelvis CT 08/18/20 16:42 IMPRESSION: 1. Pancolitis. Labs Labs: Laboratory Results - last 24 hr 08/19/20 08/19/20 08/20/20 17:52 21:03 07:54 WBC RBC Hgb Hct MCV MCH MCHC RDW Plt Count MPV Immature Gran % (Auto) Neut % (Auto) Lymph % (Auto) Garden % (Auto) Eos % (Auto) Baso % (Auto) Lymph # (Auto) Garden # (Auto) Eos # (Auto) Baso # (Auto) Abs Immat Gran (auto) Absolute Neuts (auto) Absolute Nucleated RBC Nucleated RBC % Sodi
[2020-08-20 14:00] VITALS: BP 132/45; PULSE 89; RESP 20; TEMP 37.1; O2SAT 98
--- NOTE | 2020-08-20 16:06 | PM.IMPN ---
Progress Note: A&P Assessment and Plan (1) C. difficile colitis: Code(s): A04.72 - Enterocolitis due to Clostridium difficile, not specified as recurrent Status: Acute Assessment and Plan: The patient received antibiotics at [facility] for her right lower extremity cellulitis. Patient moved to [facility] on 07/30/20. Stool study was positive for CDiff on 08/17/20; WBC 19.8. She was started on Flagyl and Vanco at the facility but was admitted here a short time later. CT abdomen/pelvis here showing pancolitis. WBC here 23.7 on admission. The patient was started on IV Flagyl and Dificid but Vanco added and Flagyl stopped. WBC down to 17.7K today. Diarrhea beginning to improve. Fidaxomicin stopped today. Continue oral Vanco through 08/31/20. Continue PT/OT. Appreciate ID input. Resume some of her home meds (2) CKD (chronic kidney disease) stage 3, GFR 30-59 ml/min: Code(s): N18.3 - Chronic kidney disease, stage 3 (moderate) Status: Acute Assessment and Plan: Cr 1.2 on admission. Cr 1.3 at the SNF drawn just prior to admission. Cr today better at 1.0. Currently on IV fluids. She is eating better. Continue to monitor. Okay to stop IV fluids. (3) COPD (chronic obstructive pulmonary disease): Qualifiers: COPD type: unspecified COPD Qualified Code(s): J44.9 - Chronic obstructive pulmonary disease, unspecified Code(s): J44.9 - Chronic obstructive pulmonary disease, unspecified Status: Acute Assessment and Plan: Stable. No wheezing. Not requiring O2. Continue to monitor. (4) Diabetes mellitus: Qualifiers: Diabetes mellitus complication detail: with microalbuminuria Diabetes mellitus complication status: with kidney complications Diabetes mellitus termite control servicer insulin use: without penitentiary use Diabetes mellitus type: type 2 Qualified Code(s): E11.29 - Type 2 diabetes mellitus with other diabetic kidney complication; R80.9 - Proteinuria, unspecified Code(s): E11.9 - Type 2 diabetes mellitus without complications Status: Acute Assessment and Plan: A1c 6.9. The patient's blood glucose was reviewed on 08/20 Glucose remains reasonably well controlled running 100-180. Continue AccuCheks covering with sliding scale. Hypoglycemia protocol available as needed. Continue to monitor (5) SKYLER (obstructive sleep apnea): Code(s): G47.33 - Obstructive sleep apnea (adult) (pediatric) Status: Acute Assessment and Plan: Auto titrate CPAP ordered but patient refusing NIV. Encouraged compliance but she states she will not be using the machine. Will have it removed from the room. (6) Diastolic dysfunction: Code(s): I51.89 - Other ill-defined heart diseases Status: Acute Assessment and Plan: Echo in May 2019 showing EF 60-65% and diastolic dysfunction. Lasix on hold. Monitor fluid status closely. Stop IV fluids (7) Ulcer of right leg: Code(s): L97.919 - Non-pressure chronic ulcer of unspecified part of right lower leg with unspecified severity Status: Acute Assessment and Plan: Traumatic wound on 07/21/20. head automatic sawyer consulted. Continue current wound care. (8) DVT prophylaxis: Code(s): Z29.9 - Encounter for prophylactic measures, unspecified Status: Acute Assessment and Plan: Lovenox Subjective Date/time seen: 08/20/20 16:06 Interval history: 79yo female with COPD, CKD and DM here for CDiff diarrhea. Patient feels much better. Stool volume is decreasing. Stools become more formed. Abdominal pain is improved. Eating better. She also feels the right leg wound is improving with less pain. Was out of the bed to the chair a majority of the day. Right leg wound occurred on 07/21 when her foot missed the foot step on her dtrs car and she sheered her right das. She is refusing still the NIV and states sh
--- NOTE | 2020-08-20 17:28 | CONS_ITS ---
DATE OF CONSULTATION: 08/20/2020 REASON FOR CONSULTATION: C difficile infection. HISTORY OF PRESENT ILLNESS: 79-year-old female who was an inpatient at [facility] last month. I did not see her there. She apparently had a traumatic ulcer, occurring when she bumped her right das against a running board on her daughter's SUV. She was given IV antibiotics while there and then on trimethoprim sulfa at the patient's skilled nursing. One day before admission, she developed diarrhea that was profuse and watery with lower abdominal pain, midline to extreme left lower quadrant. A C difficile PCR test was performed and was positive. In response, she was started on oral vancomycin and oral metronidazole early on the morning of August 18. However, apparently due to suggestion of dehydration, she was sent to the emergency room on the morning of August 18 and was admitted. She was given metronidazole, fidaxomicin, and consultation requested. I then put her on vancomycin yesterday, which she remains on. The patient today notes significant improvement in the diarrhea in terms of consistency and frequency. She has a good appetite. No nausea or vomiting. There is no radiation of her abdominal pain. No exacerbating or relieving factors. No dyspnea, fever, chills, sweats. ALLERGIES: NONE KNOWN. HABITS: Ex-smoker. Recently has been using illicit drugs. Former alcohol. PRESENT MEDICATIONS: List reviewed. No immunosuppressants. PAST MEDICAL HISTORY: In addition to the above, appendectomy, cataract extractions, lymphedema, hyperlipidemia, diastolic dysfunction, diabetes, COPD, stage 3 chronic renal insufficiency. REVIEW OF SYSTEMS: 14-point review otherwise negative. FAMILY HISTORY: Not pertinent to her present illness. SOCIAL HISTORY: She has been living with her daughter, who also uses illicit drugs. The patient is and does not work outside the home. PHYSICAL EXAMINATION: GENERAL: This is an elderly female who appears her actual age. No acute distress. VITAL SIGNS: Afebrile, 65, 18, 136/51, 96% on room air. SKIN: Warm and dry. No rashes. She has stasis dermatitis changes, right more marked than the left distal leg. She has an irregular shaped 3 cm ulcer, partial thickness over the mid anterior das. There is no surrounding erythema, tenderness, sinus tracts. There is minimal slough at the ulcer bed. She has a dressing in place. NODES: No cervical adenopathy. EENT: The conjunctivae are clear. The oropharynx, oral mucosa normal. NECK: No masses, thyromegaly or meningismus. LUNGS: Clear to auscultation and percussion. CARDIAC: Regular rate and rhythm without murmur, gallop, or rub. Pulses are 1+ and equal. ABDOMEN: Soft, nontender, obese. No organomegaly. No masses. EXTREMITIES: Without clubbing or cyanosis. LAB: I reviewed her skilled nursing labs. White blood cell count on 07/15 was 7.8, on arrival here 23.7, now 17.7; hemoglobin 10.6; platelets are 294. Differential, minimal left shift, more marked when she arrived. She has hyponatremia. BUN 20, creatinine 1.0, glucose is 180. A1c is 6.9%, similar to prior. Albumin 2.4, alkaline phosphatase 127. Liver function tests otherwise normal. RADIOLOGY: Abdomen and pelvic CT, OGD, splenic calcifications, sludge or stones in the gallbladder. Renal cortical thickening, diverticula, colon wall thickening. ASSESSMENT: 1. Diarrhea with leukocytosis due to Clostridium difficile infection in turn due to previous antibiotic exposure, is clinically otherwise uncomplicated and not severe in nature. 2. Polysubstance abuse. 3. Recent traumatic ulcer with superinfection, not currently infected. 4. Chronic venous stasis. RECOMMENDATIONS: 1. Vancomycin monotherapy through August 31 to complete
[2020-08-20 17:32] LABS: Glucose Point of Care 120 mg/dl (65-105)
[2020-08-20 22:00] VITALS: BP 154/51; PULSE 72; RESP 20; TEMP 36.9; O2SAT 94
[2020-08-21] MEDS: SALINE LOCK FLUSH 10 ML IV PUSH ×3 (05:14→20:38)
[2020-08-21] MEDS: VANCOMYCIN ORAL 125 MG/2.5 ML SYRUP PO ×4 (05:14→23:32)
[2020-08-21] MEDS: HYDROcodone/acetaminophen (*CRX) 5-325 MG TABLET 1 TAB PO ×4 (05:18→22:13)
[2020-08-21] MEDS: ONDANSETRON INJ 4 MG/2 ML VIAL IV PUSH ×3 (05:18→22:18)
[2020-08-21 06:00] VITALS: BP 136/44; PULSE 63; RESP 18; TEMP 36.6; O2SAT 94
[2020-08-21 06:50] LABS: Basophils Absolute Auto 0.1 K/mm3 (0.0-0.1); Basophils Percent Auto 0.5 % (0.2-1.2); Eosinophils Absolute Auto 0.2 K/mm3 (0-0.3); Eosinophils Percent Auto 1.2 % (0-4.4); Hematocrit 31.8 % (37.0-47.0); Hemoglobin 10.3 g/dL (12.0-15.0); Immature Granulocyte Absolute 0.71 K/mm3 (0.00-0.031); Immature Granulocyte Percent A 4.4 % (0-0.5); Lymphocytes Absolute Auto 1.26 K/mm3 (0.9-3.2); Lymphocytes Percent Auto 7.8 % (18.3-44.2); Mean Corpuscular HGB Conc 32.4 g/dl (32-36); Mean Corpuscular Hemoglobin 27.3 pg (26-34); Mean Corpuscular Volume 84.4 fl (80-100); Mean Platelet Volume 9.1 fl (7.4-10.4); Monocytes Absolute Auto 0.6 K/mm3 (0.1-0.6); Monocytes Percent Auto 3.6 % (2.6-8.5); Neutrophils Absolute Auto 13.4 K/mm3 (1.3-6.7); Neutrophils Percent Auto 82.5 % (45.5-73.1); Platelet Count Result 328 k/mm3 (150-375); Red Blood Count 3.77 M/mm3 (4.2-5.4); Red Cell Distribution Width 14.6 % (11.5-14.5); White Blood Count 16.3 K/mm3 (4.5-10.0)
[2020-08-21 07:11] LABS: Anion Gap 5 mmol/L (8-16); Blood Urea Nitrogen 14 mg/dL (7-17); Calcium 7.7 mg/dL (8.4-10.2); Carbon Dioxide 21 mmol/L (22-30); Chloride 109 mmol/L (98-107); Estimated CRCL calculation 47 ml/min; Estimated Glomerular Filt Rate 54; Glucose 123 mg/dL (65-105); Potassium 4.3 mmol/L (3.4-5.0); Sodium 135 mmol/L (137-145)
[2020-08-21 07:57] LABS: Glucose Point of Care 130 mg/dl (65-105)
[2020-08-21] MEDS: ENOXAPARIN 40 MG/0.4 ML SYRINGE SUB-Q (09:39)
[2020-08-21] MEDS: CYANOCOBALAMIN 1,000 MCG TABLET 1000 MCG PO (09:39)
[2020-08-21] MEDS: ROSUVASTATIN 5 MG TABLET PO (09:40)
[2020-08-21] MEDS: SILVERGEL (ELTA) 45 ML 1 APPLIC TOPICAL (09:40)
[2020-08-21 12:13] LABS: Glucose Point of Care 162 mg/dl (65-105)
--- NOTE | 2020-08-21 14:17 | PM.IMPN ---
Progress Note: A&P Assessment and Plan (1) C. difficile colitis: Code(s): A04.72 - Enterocolitis due to Clostridium difficile, not specified as recurrent Status: Acute Assessment and Plan: The patient received antibiotics at [facility] for her right lower extremity cellulitis. Patient moved to [facility] Center at [facility] on 07/30/20. Stool study was positive for CDiff on 08/17/20; WBC 19.8. She was started on Flagyl and Vanco at the facility but was admitted here a short time later. Here, CT abdomen/pelvis showing pancolitis with a WBC of 23.7. The patient was started on IV Flagyl and Dificid but Vanco added and Flagyl stopped. Fidaxomicin stopped 08/20. WBC down to 16.3K today. The non-gap acidosis better as well. Diarrhea continues to improve but still having excessive numbers of stools. Continue oral Vanco through 08/31/20. Continue PT/OT. Appreciate ID input. Discharge when diarrhea drops to a manageable state. (2) CKD (chronic kidney disease) stage 3, GFR 30-59 ml/min: Code(s): N18.3 - Chronic kidney disease, stage 3 (moderate) Status: Acute Assessment and Plan: Cr 1.3 at the SNF drawn just prior to admission and Cr 1.2 on admission here. Natasha started on IV fluids and Cr improved to 1.0. She is eating better. IV fluids stopped and Cr has remianed stable off IV fluids. COntinue to monitor. (3) COPD (chronic obstructive pulmonary disease): Qualifiers: COPD type: unspecified COPD Qualified Code(s): J44.9 - Chronic obstructive pulmonary disease, unspecified Code(s): J44.9 - Chronic obstructive pulmonary disease, unspecified Status: Acute Assessment and Plan: Stable. Feels SOB but no wheezing. No tachypnea, hypoxia or tachycardia to suggest PE. Possibly anxiety related. Continue to monitor. will add Buspar (4) Diabetes mellitus: Qualifiers: Diabetes mellitus complication detail: with microalbuminuria Diabetes mellitus complication status: with kidney complications Diabetes mellitus termite exterminator helper insulin use: without [facility] use Diabetes mellitus type: type 2 Qualified Code(s): E11.29 - Type 2 diabetes mellitus with other diabetic kidney complication; R80.9 - Proteinuria, unspecified Code(s): E11.9 - Type 2 diabetes mellitus without complications Status: Acute Assessment and Plan: A1c 6.9. The patient's blood glucose was reviewed on 08/21 Glucose remains reasonably well controlled running 100-160 mostly. Continue AccuCheks covering with sliding scale. Hypoglycemia protocol available as needed. Continue to monitor (5) SKYLER (obstructive sleep apnea): Code(s): G47.33 - Obstructive sleep apnea (adult) (pediatric) Status: Acute Assessment and Plan: Auto titrate CPAP ordered but patient refusing NIV. Encouraged compliance but she states she will not be using the machine. We have removed machine from the room. (6) Diastolic dysfunction: Code(s): I51.89 - Other ill-defined heart diseases Status: Acute Assessment and Plan: Echo in May 2019 showing EF 60-65% and diastolic dysfunction. Lasix held on admisison. Monitor fluid status closely. Continue to hold Lasix (7) Ulcer of right leg: Code(s): L97.919 - Non-pressure chronic ulcer of unspecified part of right lower leg with unspecified severity Status: Acute Assessment and Plan: Traumatic wound on 07/21/20. flat bed operator consulted. Continue current wound care. (8) DVT prophylaxis: Code(s): Z29.9 - Encounter for prophylactic measures, unspecified Status: Acute Assessment and Plan: Lovenox Subjective Date/time seen: 08/21/20 14:17 Interval history: 79yo female with COPD, CKD and DM here for CDiff diarrhea. Patient feels better. Patient still having multiple loose stools (4-5 today so far) but becoming less liquid. Eating better. Abd pain improved.
[2020-08-21 16:00] VITALS: BP 130/50; PULSE 66; RESP 18; TEMP 38; O2SAT 96
[2020-08-21 17:24] LABS: Glucose Point of Care 130 mg/dl (65-105)
[2020-08-21] MEDS: busPIRone HCL 5 MG TABLET PO ×2 (17:29→20:37)
[2020-08-21] MEDS: ACETAMINOPHEN 325 MG TABLET 650 MG PO (20:37)
[2020-08-21 22:00] VITALS: BP 106/56; PULSE 107; RESP 18; TEMP 36.2; O2SAT 96
[2020-08-21 22:15] LABS: Glucose Point of Care 165 mg/dl (65-105)
[2020-08-22] VITALS (8 sets, daily range): BP systolic 92–122; BP diastolic 52–83; PULSE 50–149; RESP 16–18; TEMP 36.1–37; O2SAT 94–98
--- NOTE | 2020-08-22 | ECHO_ITS ---
Patient Info Name: May Hameed Age: 79 years : 1940 Gender: Female Ht: 64 in Wt: 210 lbs BSA: 2.12 m2 HR: 74 bpm BP: 108 / 52 mmHg Heart Rhythm: Sinus Rhythm Technical Quality: Fair Exam Date: 08/22/2020 1:39 PM Exam Location: [facility] Patient Status: Inpatient Admit Date: 08/20/2020 Staff Ordering Physician: Ludin Cho MD Wardrobe Stylist: Radha Jessica RDCS Attending Provider: Vamshi Khanna MD Referring Physician: Marquis FARIAS; Exam Type: CA echo doppler color flow Study Info Complete two-dimensional, color flow and Doppler transthoracic echocardiogram is performed. Summary 1. Complete two-dimensional, color flow and Doppler transthoracic echocardiogram is performed. 2. Left ventricular chamber dimension is normal. 3. Left ventricular systolic function is normal, estimated at 65-70%. 4. There is mildly increased left ventricular wall thickness. 5. The left ventricular diastolic function is grade I diastolic dysfunction. 6. Right ventricular chamber dimension is mildly enlarged. 7. Left atrial chamber dimension is mildly enlarged. 8. There is mild tricuspid valve regurgitation. 9. There is mild pulmonic regurgitation. Left Ventricle Left ventricular chamber dimension is normal. Left ventricular systolic function is normal, estimated at 65-70%. There is mildly increased left ventricular wall thickness. The left ventricular diastolic function is grade I diastolic dysfunction. Right Ventricle Right ventricular chamber dimension is mildly enlarged. Right ventricular systolic function is normal. Left Atria Left atrial chamber dimension is mildly enlarged. Right Atria Right atrial chamber dimension is normal. Atrial Septum Intact interatrial septum visualized by color flow imaging. Aortic Valve The aortic valve is trileaflet. There is mild aortic valve sclerosis. There is no aortic valve stenosis. There is trace aortic valve regurgitation. Pulmonic Valve The pulmonic valve is normal. There is no pulmonic valve stenosis. There is mild pulmonic regurgitation. Mitral Valve The mitral valve has calcified annulus. There is no mitral valve stenosis. There is trace mitral valve regurgitation. Tricuspid Valve The tricuspid valve leaflets are normal. There is no significant tricuspid valve stenosis. There is mild tricuspid valve regurgitation. No pulmonary hypertension, estimated pulmonary arterial systolic pressure is 30 mmHg. Pericardium/Pleural The pericardium appears normal. There is no pericardial effusion. Inferior Vena Cava Dilated inferior vena cava with >50% collapse upon inspiration consistent with elevated right atrial pressure, 15 mmHg. Aorta The aortic root size at the sinus of Valsalva is normal. The prox ascending aorta size is normal. Left Ventricular Outflow Tract Name Value Normal LVOT 2D LVOT Diameter 2.2 cm LVOT Doppler LVOT Peak Gradient 7 mmHg LVOT Mean Gradient 4 mmHg LVOT VTI 24 cm LVOT VTI/AV VTI Ratio
[2020-08-22] MEDS: VANCOMYCIN ORAL 125 MG/2.5 ML SYRUP PO ×3 (05:58→17:23)
[2020-08-22] MEDS: SALINE LOCK FLUSH 10 ML IV PUSH ×3 (05:59→21:42)
[2020-08-22] MEDS: HYDROcodone/acetaminophen (*CRX) 5-325 MG TABLET 1 TAB PO ×3 (06:00→21:49)
--- NOTE | 2020-08-22 06:34 | ECG_ITS ---
Measurements Intervals [place] Rate: 70 P: CO: 0 QRS: 15 QRSD: 91 T: 36 QT: 390 QTc: 424 Interpretive Statements ECTOPIC ATRIAL RHYTHM ATRIAL PREMATURE COMPLEX LOW QRS VOLTAGE IN PRECORDIAL LEADS BASELINE ARTIFACT- II, III, V1-V3 ABNORMAL ECG Electronically Signed On 08-22-2020 11:56:40 CDT by Bob Randhawa D.O.
[2020-08-22 06:42] LABS: Basophils Absolute Auto 0.1 K/mm3 (0.0-0.1); Basophils Percent Auto 0.6 % (0.2-1.2); Eosinophils Absolute Auto 0.2 K/mm3 (0-0.3); Eosinophils Percent Auto 1.4 % (0-4.4); Hematocrit 35.3 % (37.0-47.0); Hemoglobin 11.3 g/dL (12.0-15.0); Immature Granulocyte Absolute 0.72 K/mm3 (0.00-0.031); Lymphocytes Absolute Auto 0.88 K/mm3 (0.9-3.2); Lymphocytes Percent Auto 6.1 % (18.3-44.2); Mean Corpuscular Hemoglobin 27.1 pg (26-34); Mean Corpuscular Volume 84.7 fl (80-100); Mean Platelet Volume 9.3 fl (7.4-10.4); Monocytes Absolute Auto 0.6 K/mm3 (0.1-0.6); Neutrophils Absolute Auto 11.9 K/mm3 (1.3-6.7); Neutrophils Percent Auto 82.9 % (45.5-73.1); Platelet Count Result 343 k/mm3 (150-375); Red Blood Count 4.17 M/mm3 (4.2-5.4); Red Cell Distribution Width 14.7 % (11.5-14.5); White Blood Count 14.3 K/mm3 (4.5-10.0)
[2020-08-22] MEDS: METOPROLOL TARTRATE 25 MG TABLET PO (06:47)
[2020-08-22 06:55] LABS: Anion Gap 7 mmol/L (8-16); Blood Urea Nitrogen 12 mg/dL (7-17); Carbon Dioxide 21 mmol/L (22-30); Chloride 107 mmol/L (98-107); Estimated CRCL calculation 51 ml/min; Estimated Glomerular Filt Rate > 60; Glucose 145 mg/dL (65-105); Potassium 4.7 mmol/L (3.4-5.0); Sodium 135 mmol/L (137-145)
[2020-08-22 08:04] LABS: Glucose Point of Care 162 mg/dl (65-105)
[2020-08-22] MEDS: SILVERGEL (ELTA) 45 ML 1 APPLIC TOPICAL (09:42)
[2020-08-22] MEDS: ENOXAPARIN 40 MG/0.4 ML SYRINGE SUB-Q (09:42)
[2020-08-22] MEDS: CYANOCOBALAMIN 1,000 MCG TABLET 1000 MCG PO (09:43)
[2020-08-22] MEDS: busPIRone HCL 5 MG TABLET PO ×2 (09:43→21:41)
[2020-08-22] MEDS: ROSUVASTATIN 5 MG TABLET PO (09:43)
--- NOTE | 2020-08-22 10:19 | PM.CNCAR ---
Assessment and Plan Assessment and plan (1) C. difficile colitis: Code(s): A04.72 - Enterocolitis due to Clostridium difficile, not specified as recurrent Status: Acute Assessment and Plan: Continue antibiotics (2) Diastolic dysfunction: Code(s): I51.89 - Other ill-defined heart diseases Status: Acute Assessment and Plan: She has had some swelling. She is on diuretics at this point. Check a 2D echocardiogram with Doppler (3) Junctional rhythm: Code(s): I49.8 - Other specified cardiac arrhythmias Status: Acute Assessment and Plan: This is new following metoprolol to treat her narrow complex tachycardia. She is stable. She is not significantly hypotensive and not symptomatic. Avoid AV an SA maryan agents. Will discontinue metoprolol. Will check a TSH and a magnesium level as well as T4 level now. 2D echocardiogram Doppler be ordered. Continue telemetry monitoring. She become significantly bradycardic or symptomatic with hypotension, show any transferred to IMU or ICU. Atropine 0.4 mg can be given in that scenario or transcutaneous pacing in the ICU (4) Narrow complex tachycardia: Code(s): I47.1 - Supraventricular tachycardia Status: Acute Assessment and Plan: Probably atrial flutter and atrial tachycardia. Labs as above. (5) SKYLER (obstructive sleep apnea): Code(s): G47.33 - Obstructive sleep apnea (adult) (pediatric) Status: Acute Assessment and Plan: On CPAP (6) Dyslipidemia associated with type 2 diabetes mellitus: Code(s): E11.69 - Type 2 diabetes mellitus with other specified complication; E78.5 - Hyperlipidemia, unspecified Status: Acute Assessment and Plan: On statin (7) COPD (chronic obstructive pulmonary disease): Qualifiers: COPD type: unspecified COPD Qualified Code(s): J44.9 - Chronic obstructive pulmonary disease, unspecified Code(s): J44.9 - Chronic obstructive pulmonary disease, unspecified Status: Acute Assessment and Plan: Have also talked to her and the nurse about allowing her to use her inhaler. They will contact Dr. Marquez to have it scheduled more frequently History of Present Illness History of Present Illness Consult date/time: 08/22/20 10:19 Requesting physician: Laura Hodgson MD Consult reason: atrial fibrillation Reason For Visit: Pancolitis Narrative: Date of service 08/22/2020: History: Patient is a 79-year-old female who was admitted from a nursing facility for C diff. She had been treated for or right leg cellulitis and later she states that she has had bilateral lower extremity cellulitis. That treatment is performed at [facility]. Patient developed C difficile from that treatment. She was then [facility] but continued to have severe diarrhea and she had a CT scan of her abdomen pelvis which was read as having pancolitis. She was weak and therefore she was admitted for failure to thrive and further treatment of her colitis. Last night, via the nursing staff, she had stated that she was not feeling right. Vitals were performed and she was found to be tachycardic. She was then put on monitor and was felt like she was in atrial fibrillation. No EKG was performed at that time. Metoprolol orally was given and by the time an EKG was performed her heart rate had come down and is actually in a junctional rhythm at that point with occasional sinus beats. In reviewing the panel monitor, it appears that patient was tachycardic and possibly in atrial fibrillation or flutter but cannot rule out an atrial tachycardia either. She then broke and came down to a junctional rhythm with occasional ectopic atrial beats and then finally occasional sinus beats but still predominantly a junctional rhythm with a heart rate in the 50s. She currently is annoyed that she cannot have her inhaler at bedside. Decides that she denies any chest pain.
[2020-08-22 10:55] LABS: Magnesium 2.3 mg/dL (1.6-2.3)
[2020-08-22 11:13] LABS: T4 Thyroxine 6.09 ug/dL (5.53-11.0)
[2020-08-22 12:00] LABS: Glucose Point of Care 203 mg/dl (65-105)
[2020-08-22] MEDS: INSULIN ASPART (*BKC) 100 UNITS/ML SUB-Q (14:18)
[2020-08-22 17:47] LABS: Glucose Point of Care 138 mg/dl (65-105)
[2020-08-22] MEDS: ONDANSETRON INJ 4 MG/2 ML VIAL IV PUSH (21:49)
[2020-08-22 22:14] LABS: Glucose Point of Care 145 mg/dl (65-105)
[2020-08-23] VITALS (10 sets, daily range): BP systolic 107–157; BP diastolic 61–76; PULSE 56–129; RESP 18–20; TEMP 36.1–37.1; O2SAT 94–97
[2020-08-23] MEDS: VANCOMYCIN ORAL 125 MG/2.5 ML SYRUP PO ×4 (00:22→17:07)
[2020-08-23] MEDS: HYDROcodone/acetaminophen (*CRX) 5-325 MG TABLET 1 TAB PO ×3 (03:00→17:49)
[2020-08-23] MEDS: SALINE LOCK FLUSH 10 ML IV PUSH ×3 (05:51→20:51)
[2020-08-23] MEDS: ACETAMINOPHEN 325 MG TABLET 650 MG PO (05:51)
--- NOTE | 2020-08-23 07:33 | PM.IMPN ---
Progress Note: A&P Assessment and Plan (1) C. difficile colitis: Code(s): A04.72 - Enterocolitis due to Clostridium difficile, not specified as recurrent Status: Acute Assessment and Plan: 08/22/20 17:00 The patient received antibiotics at [facility] for her right lower extremity cellulitis. Patient moved to [facility] at [facility] on 07/30/20. Stool study was positive for CDiff on 08/17/20; WBC 19.8. She was started on Flagyl and Vanco at the facility but was admitted here a short time later. Here, CT abdomen/pelvis showing pancolitis with a WBC of 23.7. The patient was started on IV Flagyl and Dificid but Vanco added and Flagyl stopped. Fidaxomicin stopped 08/20. WBC down to 16.3K today. The non-gap acidosis better as well. Diarrhea continues to improve but still having excessive numbers of stools. Continue oral Vanco through 08/31/20. Continue PT/OT. Appreciate ID input. Discharge when diarrhea drops to a manageable state. 08/22 patient with C diff pancolitis currently patient is treated with Dificid and oral vancomycin today patient states she had 6 BMs and felt there were more foamed and not loose, patient white counts are trending down today 14.3 compared when she arrived 23.7, patient denies any abdominal pain nausea or vomiting able to tolerate her diet, patient seen by Cardiology with history of narrow complex tachycardia patient BP soft and metoprolol stopped, and recommended to avoid AV and SA maryan agents, will continue to monitor and further recommendation to follow. (2) CKD (chronic kidney disease) stage 3, GFR 30-59 ml/min: Code(s): N18.3 - Chronic kidney disease, stage 3 (moderate) Status: Acute Assessment and Plan: Cr 1.3 at the SNF drawn just prior to admission and Cr 1.2 on admission here. Natasha started on IV fluids and Cr improved to 1.0. She is eating better. IV fluids stopped and Cr has remianed stable off IV fluids. COntinue to monitor. (3) COPD (chronic obstructive pulmonary disease): Qualifiers: COPD type: unspecified COPD Qualified Code(s): J44.9 - Chronic obstructive pulmonary disease, unspecified Code(s): J44.9 - Chronic obstructive pulmonary disease, unspecified Status: Acute Assessment and Plan: Stable. Feels SOB but no wheezing. No tachypnea, hypoxia or tachycardia to suggest PE. Possibly anxiety related. Continue to monitor. will add Buspar (4) Diabetes mellitus: Qualifiers: Diabetes mellitus type: type 2 Diabetes mellitus fci insulin use: without intermodal dispatcher use Diabetes mellitus complication status: with kidney complications Diabetes mellitus complication detail: with microalbuminuria Qualified Code(s): E11.29 - Type 2 diabetes mellitus with other diabetic kidney complication; R80.9 - Proteinuria, unspecified Code(s): E11.9 - Type 2 diabetes mellitus without complications Status: Acute Assessment and Plan: A1c 6.9. The patient's blood glucose was reviewed on 08/21 Glucose remains reasonably well controlled running 100-160 mostly. Continue AccuCheks covering with sliding scale. Hypoglycemia protocol available as needed. Continue to monitor (5) SKYLER (obstructive sleep apnea): Code(s): G47.33 - Obstructive sleep apnea (adult) (pediatric) Status: Acute Assessment and Plan: Auto titrate CPAP ordered but patient refusing NIV. Encouraged compliance but she states she will not be using the machine. We have removed machine from the room. (6) Diastolic dysfunction: Code(s): I51.89 - Other ill-defined heart diseases Status: Acute Assessment and Plan: Echo in May 2019 showing EF 60-65% and diastolic dysfunction. Lasix held on admisison. Monitor fluid status closely. Continue to hold Lasix (7) Ulcer of right leg: Code(s): L97.919 - Non-pressure chronic ulcer of unspecified part of right lower leg with unspeci
[2020-08-23 08:14] LABS: Glucose Point of Care 139 mg/dl (65-105)
--- NOTE | 2020-08-23 09:18 | PM.PNCARD ---
Progress Note: A&P Assessment and Plan (1) C. difficile colitis: Code(s): A04.72 - Enterocolitis due to Clostridium difficile, not specified as recurrent Status: Acute Assessment and Plan: Continue antibiotics (2) Diastolic dysfunction: Code(s): I51.89 - Other ill-defined heart diseases Status: Acute Assessment and Plan: She has had some swelling. She is on diuretics at this point. 40 mg IV furosemide x1 (3) Junctional rhythm: Code(s): I49.8 - Other specified cardiac arrhythmias Status: Acute Assessment and Plan: This is new following metoprolol to treat her narrow complex tachycardia. She is stable. She is not significantly hypotensive and not symptomatic. Avoid AV an SA maryan agents. Continue telemetry monitoring. She is back in atrial fibrillation this morning. 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 Heart rate is not significantly elevated and ranging between 100 and 120 beats per minute. Will try a low-dose metoprolol 12.5 mg p.o. x1 to see if she tolerates this without heart block. (4) Narrow complex tachycardia: Code(s): I47.1 - Supraventricular tachycardia Status: Acute Assessment and Plan: Atrial fibrillation is now seen. Labs as above. (5) SKYLER (obstructive sleep apnea): Code(s): G47.33 - Obstructive sleep apnea (adult) (pediatric) Status: Acute Assessment and Plan: On CPAP (6) Dyslipidemia associated with type 2 diabetes mellitus: Code(s): E11.69 - Type 2 diabetes mellitus with other specified complication; E78.5 - Hyperlipidemia, unspecified Status: Acute Assessment and Plan: On statin (7) COPD (chronic obstructive pulmonary disease): Qualifiers: COPD type: unspecified COPD Qualified Code(s): J44.9 - Chronic obstructive pulmonary disease, unspecified Code(s): J44.9 - Chronic obstructive pulmonary disease, unspecified Status: Acute Assessment and Plan: On inhalers Subjective Date/time seen: 08/23/20 09:18 Interval history: 79yo female with COPD, CKD and DM here for CDiff diarrhea. Date of service 08/23/2020: She went back into a normal rhythm yesterday afternoon. Overnight though she reverted back into atrial fibrillation. Heart rate is currently mildly elevated. She does have some generalized swelling and some shortness of breath but no chest pain. Review of Systems Review of Systems: All systems reviewed & are unremarkable except as noted in HPI and below Constitutional: Constitutional: Denies excessive sweating, Denies fatigue, Denies headache(s) and Reports weakness Eyes: Eyes: Denies blurry vision ENT: Denies Normal hearing present, Denies headache(s), Denies lip swelling and Denies neck pain Cardiovascular: Cardiovascular: Denies chest pain, Reports leg edema and Reports dyspnea Respiratory: Respiratory: Reports dyspnea Gastrointestinal: Gastrointestinal: Denies abdominal pain Genitourinary: Genitourinary: Denies flank pain Musculoskeletal: Musculoskeletal: Denies neck pain Integumentary/Breasts: Skin/Breast: Denies dry skin and Reports erythema Neurologic: Denies Normal hearing present, Denies confusion, Denies headache(s) and Reports weakness Psychiatric: Psychiatric: Denies anxiety and Denies confusion Endocrine: Endocrine: Denies excessive sweating and Denies fatigue Hematologic/Lymphatic: Hematologic/Lymphatic: Denies easy bleeding Allergic/Immunologic: Allergic/Immunologic: Denies GI upset with certain foods and Denies lip swelling Exam Narrative: Exam Narrative: Patient is alert and oriented. Appears stated age Const: General: comfortable and no acute distress; No confusion Orientation/consciousness: No confusion HENMT: General nose exam: Normal nares present Eyes: Sclera: sclerae normal Neck: Neck: supple and no JVD Chest: Other: No reproducible chest wall pain to palpation Resp: Auscultation:
[2020-08-23] MEDS: CYANOCOBALAMIN 1,000 MCG TABLET 1000 MCG PO (09:19)
[2020-08-23] MEDS: busPIRone HCL 5 MG TABLET PO ×2 (09:19→20:52)
[2020-08-23] MEDS: ROSUVASTATIN 5 MG TABLET PO (09:19)
[2020-08-23] MEDS: ENOXAPARIN 40 MG/0.4 ML SYRINGE SUB-Q (09:19)
[2020-08-23] MEDS: SILVERGEL (ELTA) 45 ML 1 APPLIC TOPICAL (09:19)
[2020-08-23] MEDS: METOPROLOL TARTRATE 12.5 MG TABLET PO (10:28)
[2020-08-23] MEDS: FUROSEMIDE INJ 40 MG/4 ML VIAL IV PUSH (10:28)
[2020-08-23 12:05] LABS: Glucose Point of Care 125 mg/dl (65-105)
--- NOTE | 2020-08-23 13:43 | PCPTNOTE ---
Addendum entered by Che Diaz, LINK WIRE FABRIC MACHINE TENDER 08/23/20 15:49: Last time attempted was 1543. Original Note: Attempted to see patient twice for Physical Therapy this afternoon. Patient stated on both occurrences that she did not want to do therapy today. On the second attempted RN was coming into the room and stated that patient stated that she was having trouble breathing.
[2020-08-23 17:13] LABS: Glucose Point of Care 140 mg/dl (65-105)
[2020-08-23] MEDS: ONDANSETRON INJ 4 MG/2 ML VIAL IV PUSH (17:34)
--- NOTE | 2020-08-23 18:57 | PHAR ---
HOME MED VERIFIED COMBIVENT RESPIMAT 20MCG/100MCG 1 PUFFS EVERY 4 HOURS PRN SOB
--- NOTE | 2020-08-23 19:53 | WPDINFPN2 ---
Progress Note: A&P Additional Plan 1. Clostridium difficile colitis with recent history of antibiotics use. CT scan of the abdomen and pelvis showed pancolitis. [place] [address]. WBC count has trended down to 14,000 Clinically doing better with decreased amount of diarrhea. Continue vancomycin day 3 of 14 days. Patient states that abdominal pain has significantly improved. 2. Leukocytosis most likely secondary to Clostridium difficile colitis improving from 30/05 1014 1000 or vancomycin p.o. continue. Repeat CBC with differential next 24-48 hours. Recent traumatic ulceration of the right das. Wound was inspected clean no signs of acute infection. Continue local wound care no systemic antibiotics recommended. Subjective Date/time seen: 08/23/20 19:53 Review of Systems Review of Systems: All systems reviewed & are unremarkable except as noted in HPI and below Exam Const: General: cooperative HENMT: Head: normal to inspection Eyes: General: appearance normal, both eyes and all related structures Neck: Neck: normal visual inspection Resp: Effort & Inspection: normal respiratory effort Auscultation: clear to auscultation bilaterally Cardio: Jugular venous distension: no JVD Rate: regular rate Rhythm: regular rhythm Heart sounds: S1 normal heart sound present and S2 normal heart sound present GI: Inspection: normal to inspection GI Palp: No abdominal tenderness, No Abdominal aortic bruit present, No Soft to palpation, No Firmness to palpation present (GI), No Tenderness to palpation present (GI), No Guarding due to palpation present (GI), No Rigid due to palpation, No No hepatosplenomegaly present, No Hepatosplenomegaly present, No Hepatomegaly present, No Splenomegaly present, No Hernia present, No Palpable mass present, No Pulsatile mass present, No Aortic enlargement present, No Ascites present, No Carnett's sign positive, No Rebound tenderness present, No Bladder palpation abnormal and No Other GI palpation findings present Skin: General skin exam: normal color Lesions: no lesions Rashes: no rashes Trauma: no lacerations or abrasions Wounds: no wounds (Right das chronic superficial ulceration wound is clean no erythema) Neuro: General: oriented to person Objective Data Vital Signs Vital Signs: Vital Signs - 24 hr 08/22/20 20:00 08/22/20 22:00 08/23/20 00:00 Temperature 36.1 C L Pulse Rate 77 92 56 L Respiratory Rate 18 Blood Pressure 103/83 Pulse Oximetry 98 08/23/20 04:00 08/23/20 06:00 08/23/20 08:00 Temperature 36.1 C L Pulse Rate 111 H 111 H 129 H Respiratory Rate 18 Blood Pressure 107/67 Pulse Oximetry 97 08/23/20 10:28 08/23/20 12:00 08/23/20 15:38 Temperature 37.1 C Pulse Rate 75 69 99 Respiratory Rate 20 Blood Pressure 157/61 H Pulse Oximetry 94 08/23/20 16:00 Temperature Pulse Rate 77 Respiratory Rate Blood Pressure Pulse Oximetry Intake/Output Intake/Output: Intake & Output 08/20/20 08/21/20 08/22/20 08/23/20 23:59 23:59 23:59 23:59 Intake Total 3980 2090 2440 800 Balance 3980 2090 2440 800 Meds/Results Medications: Active Medications Generic Name Dose Route Start Last Admin Trade Name Freq PRN Reason Stop Dose Admin Acetaminophen 650 mg 08/20/20 16:34 08/23/20 05:51 Acetaminophen 325 Mg Tablet PO 650 mg Q6H PRN Administration Mild Pain (1-5) Or Fever Hydrocodone Bitart/Acetaminophen 1 tab 08/20/20 16:35 08/23/20 17:49 Hydrocodone/Acetaminophen (*Crx) 5-325 Mg Tablet PO 1 tab Q4H PRN Administration Pain Rated 6 or Greater Alteplase, Recombinant 1 mg 08/20/20 08:53 08/20/20 09:22 Alteplase 2 Mg Vial (Cathflo) IV PUSH 1 mg ONCE PRN Administration Line Occlusion Buspirone HCl 5 mg 08/21/20 14:45 08/23/20 09:19 Buspirone Hcl 5 Mg Tablet PO 5 mg Q12HR ADOLFO Administration Cyanocobalamin 1,000 mcg 08/21/20 09:00 08/23/20 09:19 Cyanocobalamin 1,000 M
[2020-08-23 20:59] LABS: Glucose Point of Care 141 mg/dl (65-105)
[2020-08-24] VITALS (7 sets, daily range): BP systolic 139–142; BP diastolic 57–60; PULSE 78–91; RESP 18–20; TEMP 36.4; O2SAT 94–97
[2020-08-24] MEDS: VANCOMYCIN ORAL 125 MG/2.5 ML SYRUP PO ×3 (00:24→13:03)
[2020-08-24] MEDS: ONDANSETRON INJ 4 MG/2 ML VIAL IV PUSH ×2 (00:25→05:57)
[2020-08-24] MEDS: SALINE LOCK FLUSH 10 ML IV PUSH ×2 (05:58→13:08)
[2020-08-24 06:47] LABS: Hematocrit 35.9 % (37.0-47.0); Hemoglobin 11.6 g/dL (12.0-15.0); Mean Corpuscular HGB Conc 32.3 g/dl (32-36); Mean Corpuscular Hemoglobin 27.1 pg (26-34); Mean Corpuscular Volume 83.9 fl (80-100); Mean Platelet Volume 8.7 fl (7.4-10.4); Platelet Count Result 376 k/mm3 (150-375); Red Blood Count 4.28 M/mm3 (4.2-5.4); Red Cell Distribution Width 14.6 % (11.5-14.5); White Blood Count 10.1 K/mm3 (4.5-10.0)
[2020-08-24 06:50] LABS: Anion Gap 6 mmol/L (8-16); Blood Urea Nitrogen 12 mg/dL (7-17); Calcium 8.7 mg/dL (8.4-10.2); Carbon Dioxide 29 mmol/L (22-30); Chloride 104 mmol/L (98-107); Estimated CRCL calculation 57 ml/min; Estimated Glomerular Filt Rate > 60; Glucose 124 mg/dL (65-105); Potassium 4.2 mmol/L (3.4-5.0); Sodium 139 mmol/L (137-145)
[2020-08-24 07:28] LABS: Glucose Point of Care 122 mg/dl (65-105)
[2020-08-24] MEDS: SILVERGEL (ELTA) 45 ML 1 APPLIC TOPICAL (08:51)
[2020-08-24] MEDS: ENOXAPARIN 40 MG/0.4 ML SYRINGE SUB-Q (08:51)
[2020-08-24] MEDS: busPIRone HCL 5 MG TABLET PO (08:52)
[2020-08-24] MEDS: ROSUVASTATIN 5 MG TABLET PO (08:52)
[2020-08-24] MEDS: CYANOCOBALAMIN 1,000 MCG TABLET 1000 MCG PO (08:52)
[2020-08-24 11:33] LABS: Glucose Point of Care 111 mg/dl (65-105)
--- NOTE | 2020-08-24 13:48 | PM.PNCARD ---
Progress Note: A&P Assessment and Plan (1) C. difficile colitis: Code(s): A04.72 - Enterocolitis due to Clostridium difficile, not specified as recurrent Status: Acute Assessment and Plan: Continue antibiotics (2) Diastolic dysfunction: Code(s): I51.89 - Other ill-defined heart diseases Status: Acute Assessment and Plan: She has had some swelling. She is not on diuretics. Echo yesterday did not show any evidence of systolic dysfunction, grade I diastolic dysfunction. Her swelling is probably secondary to her cellulitis. (3) Junctional rhythm: Code(s): I49.8 - Other specified cardiac arrhythmias Status: Acute Assessment and Plan: This is new following metoprolol to treat her narrow complex tachycardia. Today she is in normal sinus rhythm with intermittent junctional beats. Rate in the 70's and 80's. No tachycardia or bradycardia noted on telemetry overnight. She did receive one 12.5mg dose of metoprolol yesterday and did not experience any heart block. However, since her rate is normal today and she is predominantly in sinus rhythm with frequent junctional beats, I will not give her metoprolol today. We will monitor her on a monitoring and evaluation advisor as an outpatient to observe for further episodes of tachycardia or bradycardia. (4) Narrow complex tachycardia: Code(s): I47.1 - Supraventricular tachycardia Status: Acute Assessment and Plan: Likely A flutter and a tach treated with metroprolol. No SVT on teletry overnight. (5) SKYLER (obstructive sleep apnea): Code(s): G47.33 - Obstructive sleep apnea (adult) (pediatric) Status: Acute Assessment and Plan: On CPAP (6) Dyslipidemia associated with type 2 diabetes mellitus: Code(s): E11.69 - Type 2 diabetes mellitus with other specified complication; E78.5 - Hyperlipidemia, unspecified Status: Acute Assessment and Plan: On statin (7) COPD (chronic obstructive pulmonary disease): Qualifiers: COPD type: unspecified COPD Qualified Code(s): J44.9 - Chronic obstructive pulmonary disease, unspecified Code(s): J44.9 - Chronic obstructive pulmonary disease, unspecified Status: Acute Assessment and Plan: On inhalers Subjective Date/time seen: 08/24/20 13:48 Interval history: 79yo female with COPD, CKD and DM here for CDiff diarrhea. Date of service 08/23/2020: She went back into a normal rhythm yesterday afternoon. Overnight though she reverted back into atrial fibrillation. Heart rate is currently mildly elevated. She does have some generalized swelling and some shortness of breath but no chest pain. Date of service 08/24/2020: Today she is in normal sinus rhythm with intermittent junctional beats. Rate in the 70's and 80's. No tachycardia or bradycardia noted on telemetry overnight. She denies any dizziness, presyncope, syncope. She denies palpitations. She says she has pain all over her body all the time. She says this is an ongoing problem. Review of Systems Review of Systems: All systems reviewed & are unremarkable except as noted in HPI and below Constitutional: Constitutional: Denies excessive sweating, Denies fatigue, Denies headache(s) and Reports weakness Eyes: Eyes: Denies blurry vision ENT: Denies Normal hearing present, Denies headache(s), Denies lip swelling and Denies neck pain Cardiovascular: Cardiovascular: Denies chest pain, Reports leg edema and Reports dyspnea Respiratory: Respiratory: Reports dyspnea Gastrointestinal: Gastrointestinal: Denies abdominal pain Genitourinary: Genitourinary: Denies flank pain Musculoskeletal: Musculoskeletal: Denies neck pain Integumentary/Breasts: Skin/Breast: Denies dry skin and Reports erythema Neurologic: Denies Normal hearing present, Denies confusion, Denies headache(s) and Reports weakness Psychiatric: Psychiatric: Denies anxiety and Denies confusion Endocr
--- NOTE | 2020-08-24 13:52 | PCPTNOTE ---
Attempted to see patient for PT, unable to see patient due to patient refusing. Patient reported she is therapied-out and does not want to do any more therapy today.
--- NOTE | 2020-08-24 14:22 | PM.DS ---
DS: Admitting Diagnosis Admitting Diagnosis Admitting Diagnosis: Abnormal labs DS: Discharge Diagnosis Discharge Diagnosis (1) C. difficile colitis: Code(s): A04.72 - Enterocolitis due to Clostridium difficile, not specified as recurrent Status: Acute Assessment and Plan: The patient received antibiotics at [facility] for her right lower extremity cellulitis. [facility] to [facility] on 07/30/20. She developed diarrhea and stool study was positive for CDiff on 08/17/20; WBC 19.8. She was started on Flagyl and Vanco at the facility but was admitted here a short time later. Here, CT abdomen/pelvis showing pancolitis with a WBC of 23.7. The patient was started on IV Flagyl and Dificid but Vanco added and Flagyl stopped. Fidaxomicin stopped 08/20. WBC down to 10.1K today. The non-gap metabolic acidosis resolved. Diarrhea continues to improve. ID consulted with plans to continue oral Vanco through 08/31/20. (2) CKD (chronic kidney disease) stage 3, GFR 30-59 ml/min: Code(s): N18.3 - Chronic kidney disease, stage 3 (moderate) Status: Acute Assessment and Plan: Cr 1.3 at the SNF drawn just prior to admission and Cr 1.2 on admission here. Natasha started on IV fluids and Cr improved. She was eating well. IV fluids stopped and Cr has remained stable off IV fluids with Cr 0.8 today. (3) COPD (chronic obstructive pulmonary disease): Qualifiers: COPD type: unspecified COPD Qualified Code(s): J44.9 - Chronic obstructive pulmonary disease, unspecified Code(s): J44.9 - Chronic obstructive pulmonary disease, unspecified Status: Acute Assessment and Plan: Stable. Natasha does have episodes of SOB at times felt realted to anxiety. Buspar added with benefit (4) Diabetes mellitus: Qualifiers: Diabetes mellitus complication detail: with microalbuminuria Diabetes mellitus complication status: with kidney complications Diabetes mellitus remote computer terminal operator insulin use: without remote computer terminal operator use Diabetes mellitus type: type 2 Qualified Code(s): E11.29 - Type 2 diabetes mellitus with other diabetic kidney complication; R80.9 - Proteinuria, unspecified Code(s): E11.9 - Type 2 diabetes mellitus without complications Status: Acute Assessment and Plan: A1c 6.9. The patient's blood glucose was monitored with AccuCheks covering with sliding scale. Hypoglycemia protocol was available as needed. (5) SKYLER (obstructive sleep apnea): Code(s): G47.33 - Obstructive sleep apnea (adult) (pediatric) Status: Acute Assessment and Plan: Auto titrate CPAP ordered but patient refused NIV. Encouraged compliance but she states she will not be using the machine. (6) Diastolic dysfunction: Code(s): I51.89 - Other ill-defined heart diseases Status: Acute Assessment and Plan: Echo in May 2019 showing EF 60-65% and diastolic dysfunction. Lasix held on admission. We monitored fluid status and she remained euvolemic. (7) Ulcer of right leg: Code(s): L97.919 - Non-pressure chronic ulcer of unspecified part of right lower leg with unspecified severity Status: Acute Assessment and Plan: Traumatic wound on 07/21/20. rn complex care consulted and we continued current wound care. (8) Junctional rhythm: Code(s): I49.8 - Other specified cardiac arrhythmias Status: Acute Assessment and Plan: Patietn with a narrow complex tachycardia possibly AFib/AFlutter. She was treated with metoprolol and developed a junctional rhythm. As such, Cardiology consulted. We avoided AV an SA maryan agents. She was monitored on telemetry. 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 She will go home with monitor. [id number] = 5. Discussed with weapons electrical engineering officer. Will start Eliquis DS: Summary Hospital Course Reason for hospitalization: 79-year-old female who p
--- NOTE | 2020-08-24 14:45 | PM.IMPN ---
Progress Note: A&P Assessment and Plan (1) C. difficile colitis: Code(s): A04.72 - Enterocolitis due to Clostridium difficile, not specified as recurrent Status: Acute Assessment and Plan: 08/23/20 1600 The patient received antibiotics at [facility] for her right lower extremity cellulitis. Patient moved to [facility] on 07/30/20. Stool study was positive for CDiff on 08/17/20; WBC 19.8. She was started on Flagyl and Vanco at the facility but was admitted here a short time later. Here, CT abdomen/pelvis showing pancolitis with a WBC of 23.7. The patient was started on IV Flagyl and Dificid but Vanco added and Flagyl stopped. Fidaxomicin stopped 08/20. WBC down to 16.3K today. The non-gap acidosis better as well. Diarrhea continues to improve but still having excessive numbers of stools. Continue oral Vanco through 08/31/20. Continue PT/OT. Appreciate ID input. Discharge when diarrhea drops to a manageable state. 08/22 patient with C diff pancolitis currently patient is treated with Dificid and oral vancomycin today patient states she had 6 BMs and felt there were more foamed and not loose, patient white counts are trending down today 14.3 compared when she arrived 23.7, patient denies any abdominal pain nausea or vomiting able to tolerate her diet, patient seen by Cardiology with history of narrow complex tachycardia patient BP soft and metoprolol stopped, and recommended to avoid AV and SA maryan agents, will continue to monitor and further recommendation to follow. 08/23 today patient states she did not have any BM so far, will continue treating patient with Dificid and oral vancomycin, patient will be seen by ID and further recommendaton to follow, today patient also was back in atrial fibrillation patient states her son was here and he wanted to take her home with her and she does not want to do, that made her angry and trigger her atrial fibrillation patient was seen by [employer] and started the patient low-dose metoprolol 12.5 mg X1 to monitor, will continue to monitor patient and further recommendation to follow. (2) CKD (chronic kidney disease) stage 3, GFR 30-59 ml/min: Code(s): N18.3 - Chronic kidney disease, stage 3 (moderate) Status: Acute Assessment and Plan: Cr 1.3 at the SNF drawn just prior to admission and Cr 1.2 on admission here. Natasha started on IV fluids and Cr improved. She was eating well. IV fluids stopped and Cr has remained stable off IV fluids with Cr 0.8 today. (3) COPD (chronic obstructive pulmonary disease): Qualifiers: COPD type: unspecified COPD Qualified Code(s): J44.9 - Chronic obstructive pulmonary disease, unspecified Code(s): J44.9 - Chronic obstructive pulmonary disease, unspecified Status: Acute Assessment and Plan: Stable. Natasha does have episodes of SOB at times felt realted to anxiety. Buspar added with benefit (4) Diabetes mellitus: Qualifiers: Diabetes mellitus type: type 2 Diabetes mellitus intermission coordinator insulin use: without intermission coordinator use Diabetes mellitus complication status: with kidney complications Diabetes mellitus complication detail: with microalbuminuria Qualified Code(s): E11.29 - Type 2 diabetes mellitus with other diabetic kidney complication; R80.9 - Proteinuria, unspecified Code(s): E11.9 - Type 2 diabetes mellitus without complications Status: Acute Assessment and Plan: A1c 6.9. The patient's blood glucose was monitored with AccuCheks covering with sliding scale. Hypoglycemia protocol was available as needed. (5) SKYLER (obstructive sleep apnea): Code(s): G47.33 - Obstructive sleep apnea (adult) (pediatric) Status: Acute Assessment and Plan: Auto titrate CPAP ordered but patient refused NIV. Encouraged compliance but she states she will not be using the machine. (6) Diastolic dysfunction: Code(s):
== END 2020-08-24 18:05 | DRG 372 ==
LOC: ANHED 17:07 → ANH3MEDSUR 18:20
PROVIDERS: Family Medicine; Internal Medicine Cardiovascular Disease; Nurse Practitioner; Admitting Provider Internal Medicine; Emergency Provider Emergency Medicine; PCP Internal Medicine; Visit Provider Internal Medicine
DX: A04.72 Enterocolitis due to Clostridium difficile, not specified as recurrent (principal); L97.919 Non-pressure chronic ulcer of unspecified part of right lower leg with unspecified severity; E11.22 Type 2 diabetes mellitus with diabetic chronic kidney disease; N18.30 Chronic kidney disease, stage 3 unspecified; E78.5 Hyperlipidemia, unspecified; J44.9 Chronic obstructive pulmonary disease, unspecified; G47.33 Obstructive sleep apnea (adult) (pediatric); I87.8 Other specified disorders of veins
CPT/HCPCS: 36415; 74177; 80048; 80053; 80069; 82948; 83036; 83605; 83690; 83735; 84436; 84443; 85025; 85027; 93005; 93306; 96361; 96365; 96372; 96375; 96376; 97110; 97161; 97165; 97530; 99285; A9270; G0378; J1650; J1815; J1940; J2405; J2997; J7030; Q9967

== ENCOUNTER 2020-09-28 12:05 | Observation (INO) | payer MEDICARE, MEDICAID, SELFPAY ==
[2020-09-28] VITALS (9 sets, daily range): BP systolic 111–173; BP diastolic 53–90; PULSE 57–78; RESP 13–26; TEMP 36.3–36.6; O2SAT 96–100
--- NOTE | ~2020-09-28 | CT_ITS ---
EXAMINATION: CT abdomen pelvis w con EXAM DATE: 09/28/2020 17:12 INDICATION: Abdominal pain. TECHNIQUE: Spiral CT of the abdomen and pelvis was performed following intravenous injection of 100 m L Omnipaque 350. Axial, coronal and sagittal images of the abdomen and pelvis were reviewed. The do se-length product (DLP) for this examination was 1392.66 mGy-cm. The exposure was tailored according to patient size (auto mA exposure control), and iterative reconstruction (ASIR) was used as addition al dose reduction technique. Comparison is made to prior examination from 08/18/2020. FINDINGS: Patient's previously seen miles colitis last month has resolved. There is moderate to severe colonic diverticulosis. There is no adjacent inflammatory change to suggest diverticulitis. The liver, spleen, adrenal glands and pancreas are unremarkable. Gallbladder is unremarkable. No bi liary obstruction. Portal and splenic veins are patent. Kidneys enhance symmetrically. There is no hydronephrosis. The uterus is unremarkable. The bladder is unremarkable. There is no retroperit aquino or pelvic lymphadenopathy. There are no findings to suggest appendicitis. The stomach and small bowel are unremarkable. There is expected amount of colonic stool. No free intraperitoneal gas. The heart is normal in size. T here are no pericardial or pleural effusions. The lung bases are unremarkable. There are no osteobl astic or osteolytic lesions identified. IMPRESSION: 1. No acute intra-abdominal findings. 2. Moderate to severe colonic diverticulosis. Reviewed, dictated and finalized at location A.
--- NOTE | 2020-09-28 12:11 | ED.GENADULT ---
HPI - General Adult General Chief complaint: GI Bleed Stated complaint: blood in stool Time Seen by Provider: 09/28/20 12:09 Source: patient History of Present Illness HPI narrative: Patient is a 79 y/o female sent from [facility] for GI bleed. She states that she had stool tested for blood at the facility and they told her that she has blood in stool and sent her here. There is no known alleviating or exacerbating factor. She did not notice any gross blood in her stool. She has no weakness or SOB. She has chronic abdominal pain, upper back pain and shoulder pain. Related Data Home Medications Medication Instructions Recorded Confirmed furosemide [Lasix] 40 mg PO QAM 08/18/20 08/18/20 guaifenesin 600 mg PO Q12H PRN 08/18/20 08/18/20 insulin lispro 1 sliding scale dose SUBCUT 08/18/20 08/18/20 USEASDIRECTD magnesium hydroxide [Milk of 400 mg PO DAILY PRN 08/18/20 08/18/20 Magnesia] potassium chloride 20 meq PO DAILY 08/18/20 08/18/20 rosuvastatin [Crestor] 5 mg PO DAILY 08/18/20 08/18/20 Combivent Respimat 1 puff INHALATION Q4-5H PRN 08/23/20 08/23/20 Saccharomyces boulardii [Florastor] 250 mg PO BID 09/28/20 09/28/20 carvedilol [Coreg] 3.125 mg PO BID 09/28/20 09/28/20 fluticasone furoate-vilanterol 1 inh INHALATION DAILY 09/28/20 09/28/20 [Breo Ellipta] metronidazole 09/28/20 09/28/20 ondansetron HCl 09/28/20 09/28/20 Allergies Allergy/AdvReac Type Severity Reaction Status Date / Time No Known Allergies Allergy Verified 09/28/20 13:15 Review of Systems Review of Systems: All systems reviewed & are unremarkable except as noted in HPI and below Constitutional: Constitutional: Denies chills, Denies fever(s), Denies headache(s) and Denies weakness Eyes: Eyes: Denies blurry vision ENT: Denies headache(s) and Denies neck pain Cardiovascular: Cardiovascular: Denies chest pain and Denies dyspnea Respiratory: Respiratory: Denies cough and Denies dyspnea Gastrointestinal: Gastrointestinal: Reports abdominal pain, Denies diarrhea, Denies nausea, Denies vomiting and Reports other (Guiac positive stool) Genitourinary: Genitourinary: Denies hematuria and Denies dysuria Musculoskeletal: Musculoskeletal: Reports back pain, Denies neck pain and Reports other (shoulder pain) Neurologic: Denies headache(s) and Denies weakness PMFSH Past Medical History Medical History C. difficile colitis CKD (chronic kidney disease) stage 3, GFR 30-59 ml/min COPD (chronic obstructive pulmonary disease) Diabetes mellitus Diastolic dysfunction Dyslipidemia associated with type 2 diabetes mellitus Hyperlipidemia Lymphedema Surgical History Surgical History H/O cataract extraction History of appendectomy Family History Family History Sibling Family history of gynecological problem Father Malignant neoplasm of prostate Family history of diabetes mellitus in first degree relative Diabetes mellitus, Onset Age: 84 Grandparent Cerebrovascular accident, Onset Age: 65 Mother Family history of Parkinson's disease, Onset Age: 88 Social History Social History Social History: The patient used to smoke cigarettes. The patient admits to me that prior to going to [facility] that she had been taking multiple substances from the daughter that she was living with. The patient stated I was a junky . 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 Her 2 daughters of the durable power contract attorney for healthcare. The patient desires to be a full code. Smoking status: Former smoker Tobacco type: cigarettes Alcohol intake: former Substance use: former
[2020-09-28 14:07] LABS: Basophils Absolute Auto 0.1 K/mm3 (0.0-0.1); Basophils Percent Auto 0.7 % (0.2-1.2); Eosinophils Absolute Auto 0.1 K/mm3 (0-0.3); Eosinophils Percent Auto 1.6 % (0-4.4); Hematocrit 36.7 % (37.0-47.0); Hemoglobin 11.4 g/dL (12.0-15.0); Immature Granulocyte Absolute 0.03 K/mm3 (0.00-0.031); Immature Granulocyte Percent A 0.4 % (0-0.5); Lymphocytes Absolute Auto 3.58 K/mm3 (0.9-3.2); Lymphocytes Percent Auto 44.3 % (18.3-44.2); Mean Corpuscular HGB Conc 31.1 g/dl (32-36); Mean Corpuscular Hemoglobin 27.7 pg (26-34); Mean Corpuscular Volume 89.3 fl (80-100); Mean Platelet Volume 9.5 fl (7.4-10.4); Monocytes Absolute Auto 0.6 K/mm3 (0.1-0.6); Monocytes Percent Auto 7.1 % (2.6-8.5); Neutrophils Absolute Auto 3.7 K/mm3 (1.3-6.7); Neutrophils Percent Auto 45.9 % (45.5-73.1); Platelet Count Result 275 k/mm3 (150-375); Red Blood Count 4.11 M/mm3 (4.2-5.4); Red Cell Distribution Width 17.2 % (11.5-14.5); White Blood Count 8.1 K/mm3 (4.5-10.0)
[2020-09-28 14:22] LABS: Alanine Aminotransferase 22 U/L (4-35); Albumin Level 4.1 g/dL (3.5-5.1); Alkaline Phosphatase 78 U/L (38-126); Anion Gap 7 mmol/L (8-16); Aspartate Amino Transferase 32 U/L (14-36); Bilirubin,Total 0.4 mg/dL (0.2-1.3); Blood Urea Nitrogen 16 mg/dL (7-17); Calcium 9.4 mg/dL (8.4-10.2); Carbon Dioxide 30 mmol/L (22-30); Chloride 101 mmol/L (98-107); Estimated CRCL calculation 58 ml/min; Estimated Glomerular Filt Rate > 60; Glucose 106 mg/dL (65-110); INR 1.2; Potassium 3.7 mmol/L (3.4-5.0); Prothrombin Time 15.3 Seconds (11.1-14.7); Sodium 138 mmol/L (137-145)
[2020-09-28 14:23] LABS: Partial Thromboplastin Time 36.4 SECONDS (22.3-36.8)
[2020-09-28 20:52] LABS: Glucose Point of Care 161 mg/dl (65-105)
--- NOTE | 2020-09-28 22:43 | PM.IMHP ---
H&P: HPI History of Present Illness Date/Time: 09/28/20 22:43Thihalley is a 79-year-old female patient who is from [facility]. She was brought to the emergency room today because her stool was tested for for blood and found to be positive. The patient has a recent history of C difficile I will and she is still on Flagyl and vancomycin. The patient stated that her stools are soft now but are not look pointing or diarrhea like they once were. The patient stated she did notice any gross blood. She denied any shortness of breath or weakness. She has chronic abdominal pain and upper back pain and shoulder pain. Patient's H&H was noted to be 11.4 and 36.[address]. Abdominal pelvis CT was read as no acute intra-abdominal findings. Moderate to severe colonic diverticulosis. The patient is on Eliquis for atrial fibrillation. The patient is being admitted for observation status on the date of service of 09/28/2020. Chief Complaint: gi bleed Review of Systems Review of Systems: All systems reviewed & are unremarkable except as noted in HPI and below Constitutional: Constitutional: Reports as per HPI and Reports no additional constitutional complaints Eyes: Eyes: Reports as per HPI and Reports no additional eye complaints ENT: Reports system reviewed and no additional complaints, except as documented and Reports Normal hearing present Cardiovascular: Cardiovascular: Reports no additional cardiovascular complaints Respiratory: Respiratory: Reports no additional respiratory complaints and Reports no additional respiratory complaints Gastrointestinal: Gastrointestinal: Reports as per HPI and Reports no additional gastrointestinal complaints Musculoskeletal: Musculoskeletal: Reports no additional musculoskeletal complaints Integumentary/Breasts: Skin/Breast: Reports system reviewed and no additional complaints, except as docu and Reports as per HPI Neurologic: Reports system reviewed and no additional complaints, except as documented, Reports as per HPI and Reports Normal hearing present Psychiatric: Psychiatric: Reports no additional psychiatric complaints and Reports as per HPI Endocrine: Endocrine: Reports no additional endocrine complaints Hematologic/Lymphatic: Hematologic/Lymphatic: Reports no additional hematologic/lymphatic complaints Allergic/Immunologic: Allergic/Immunologic: Reports no additional allergic/immunologic complaints [facility] Past Medical History Medical History (Updated 09/28/20 @ 22:49 by Yahaira Moe NP) Atrial fibrillation C. 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 CKD (chronic kidney disease) stage 3, GFR 30-59 ml/min COPD (chronic obstructive pulmonary disease) Diabetes mellitus Diastolic dysfunction Dyslipidemia associated with type 2 diabetes mellitus Hyperlipidemia Lymphedema Surgical History Surgical History H/O cataract extraction History of appendectomy Family History Family History Sibling Family history of gynecological problem Father Malignant neoplasm of prostate Family history of diabetes mellitus in first degree relative Diabetes mellitus, Onset Age: 84 Grandparent Cerebrovascular accident, Onset Age: 65 Mother Family history of Parkinson's disease, Onset Age: 88 Social History Social History (Updated 09/28/20 @ 22:49 by Yahaira Moe NP) Social History: The patient used to smoke cigarettes. The patient admits to me that prior to going to [facility] that she had been taking multiple substances from the daughter that she was living with. The patient stated I was a junky . 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 Her 2 daughters of the [facility]
[2020-09-28 23:08] LABS: Hemoglobin 11.4 g/dL (12.0-15.0)
[2020-09-28 23:16] LABS: Hemoglobin A1C 6.3 % (<5.7)
[2020-09-29] VITALS (7 sets, daily range): BP systolic 129–143; BP diastolic 44–72; PULSE 67–72; RESP 16; TEMP 36.1–37.1; O2SAT 97–99
[2020-09-29] MEDS: metroNIDAZOLE 250 MG TABLET 500 MG PO ×4 (00:14→21:46)
[2020-09-29] MEDS: carvediloL 3.125 MG TABLET PO ×3 (00:14→21:46)
[2020-09-29] MEDS: busPIRone HCL 5 MG TABLET PO ×2 (00:14→09:12)
[2020-09-29] MEDS: VANCOMYCIN ORAL 125 MG/2.5 ML SYRUP PO ×5 (00:19→23:28)
[2020-09-29] MEDS: ACETAMINOPHEN 325 MG TABLET 650 MG PO (00:21)
--- NOTE | 2020-09-29 01:02 | PCRCNOTE ---
Pt refused use of hospital unit, she doesnt wear a cpap at home.
[2020-09-29 06:32] LABS: Basophils Absolute Auto 0.1 K/mm3 (0.0-0.1); Basophils Percent Auto 0.7 % (0.2-1.2); Eosinophils Absolute Auto 0.1 K/mm3 (0-0.3); Hematocrit 35.3 % (37.0-47.0); Hemoglobin 10.9 g/dL (12.0-15.0); Immature Granulocyte Absolute 0.03 K/mm3 (0.00-0.031); Immature Granulocyte Percent A 0.4 % (0-0.5); Lymphocytes Absolute Auto 3.37 K/mm3 (0.9-3.2); Mean Corpuscular HGB Conc 30.9 g/dl (32-36); Mean Corpuscular Hemoglobin 27.4 pg (26-34); Mean Corpuscular Volume 88.7 fl (80-100); Mean Platelet Volume 9.6 fl (7.4-10.4); Monocytes Absolute Auto 0.7 K/mm3 (0.1-0.6); Monocytes Percent Auto 9.6 % (2.6-8.5); Neutrophils Absolute Auto 2.9 K/mm3 (1.3-6.7); Neutrophils Percent Auto 40.3 % (45.5-73.1); Platelet Count Result 269 k/mm3 (150-375); Red Blood Count 3.98 M/mm3 (4.2-5.4); Red Cell Distribution Width 17.3 % (11.5-14.5); White Blood Count 7.2 K/mm3 (4.5-10.0)
[2020-09-29 06:50] LABS: Alanine Aminotransferase 20 U/L (4-35); Albumin Level 3.8 g/dL (3.5-5.1); Alkaline Phosphatase 58 U/L (38-126); Anion Gap 8 mmol/L (8-16); Aspartate Amino Transferase 29 U/L (14-36); Bilirubin,Total 0.5 mg/dL (0.2-1.3); Blood Urea Nitrogen 16 mg/dL (7-17); Calcium 9.2 mg/dL (8.4-10.2); Carbon Dioxide 29 mmol/L (22-30); Chloride 101 mmol/L (98-107); Estimated CRCL calculation 52 ml/min; Estimated Glomerular Filt Rate > 60; Glucose 107 mg/dL (65-110); Magnesium 2.1 mg/dL (1.6-2.3); Potassium 3.6 mmol/L (3.4-5.0); Sodium 138 mmol/L (137-145)
[2020-09-29 07:51] LABS: Glucose Point of Care 118 mg/dl (65-105)
[2020-09-29 08:39] LABS: Free T4 Free Thyroxine Reflex 1.06 ng/dL (0.78-2.19)
[2020-09-29] MEDS: POTASSIUM CHLORIDE 10 MEQ TABLET.ER 20 MEQ PO (09:11)
[2020-09-29] MEDS: SACCHAROMYCES BOULARDII 250 MG CAPSULE PO ×2 (09:12→17:10)
[2020-09-29] MEDS: CYANOCOBALAMIN 1,000 MCG TABLET 1000 MCG PO (09:12)
[2020-09-29] MEDS: ROSUVASTATIN 5 MG TABLET PO (09:12)
[2020-09-29] MEDS: FUROSEMIDE 40 MG TABLET PO (09:12)
--- NOTE | 2020-09-29 09:28 | WPDANESEPPF ---
Anes - Initial Pre Proc Eval Procedure: Operation Date: 09/30/20 10:30 Proposed Procedures p Esophagogastroduodenoscopy & Colonoscopy - Ton Fink MD Date/Time: 09/29/20 09:28 Surgeon: Brit Peterson PA-C Pre Op Diagnosis: GI bleed Patient Data Age: 79 Gender: F Height: 1.63 m Weight: 98 kg Last Vital Signs Temp 36.1 C L 09/29/20 06:00 Pulse 72 09/29/20 09:12 Resp 16 09/29/20 06:00 BP 129/44 L 09/29/20 06:00 Pulse Ox 97 09/29/20 06:00 Allergies Allergy/AdvReac Type Severity Reaction Status Date / Time No Known Allergies Allergy Verified 09/30/20 10:32 Home Medications Medication Instructions Recorded Confirmed Type mecobalamin (vitamin B12) 1,000 1,000 mcg PO DAILY #1 tablet 07/15/20 09/28/20 Rx mcg chewable tablet furosemide [Lasix] 40 mg PO QAM 08/18/20 09/28/20 History guaifenesin 600 mg PO Q12H PRN 08/18/20 09/28/20 History insulin lispro 1 sliding scale dose SUBCUT 08/18/20 09/28/20 History USEASDIRECTD potassium chloride 20 meq PO DAILY 08/18/20 09/28/20 History rosuvastatin [Crestor] 5 mg PO DAILY 08/18/20 09/28/20 History Combivent Respimat 1 puff INHALATION Q4-5H PRN 08/23/20 09/28/20 History Eliquis 5 mg PO BID #60 tablet 08/24/20 09/28/20 Rx acetaminophen [Mapap 650 mg PO Q6H PRN #30 tablet 08/24/20 09/28/20 Rx (acetaminophen)] buspirone 5 mg PO Q12HR #60 tablet 08/24/20 09/28/20 Rx vancomycin 125 mg PO Q6H #23 cap 08/24/20 09/28/20 Rx Breo Ellipta 1 inh INHALATION DAILY 09/28/20 09/28/20 History Saccharomyces boulardii [Florastor] 250 mg PO BID 09/28/20 09/28/20 History carvedilol [Coreg] 3.125 mg PO BID 09/28/20 09/28/20 History metronidazole 500 mg PO Q8H 09/28/20 09/29/20 History Laboratory Tests 09/28/20 09/28/20 09/28/20 13:58 14:00 14:00 WBC 8.1 K/mm3 K/mm3 (4.5-10.0) RBC 4.11 M/mm3 L M/mm3 (4.2-5.4) Hgb 11.4 g/dL L g/dL (12.0-15.0) Hct 36.7 % L % (37.0-47.0) MCV 89.3 fl fl (80-100) MCH 27.7 pg pg (26-34) MCHC 31.1 g/dl L g/dl (32-36) RDW 17.2 % H % (11.5-14.5) Plt Count 275 k/mm3 k/mm3 (150-375) MPV 9.5 fl fl (7.4-10.4) Immature Gran % (Auto) 0.4 % % (0-0.5) Neut % (Auto) 45.9 % % (45.5-73.1) Lymph % (Auto) 44.3 % H % (18.3-44.2) [place] % (Auto) 7.1 % % (2.6-8.5) Eos % (Auto) 1.6 % % (0-4.4) Baso % (Auto) 0.7 % % (0.2-1.2) Lymph # (Auto) 3.58 K/mm3 H K/mm3 (0.9-3.2) [place] # (Auto) 0.6 K/mm3 K/mm3 (0.1-0.6) Eos # (Auto) 0.1 K/mm3 K/mm3 (0-0.3) Baso # (Auto) 0.1 K/mm3 K/mm3 (0.0-0.1) Abs Immat Gran (auto) 0.03 K/mm3 K/mm3 (0.00-0.031) Absolute Neuts (auto) 3.7 K/mm3 K/mm3 (1.3-6.7) Absolute Nucleated RBC 0.0 K/mm3 K/mm3 (0.0-0.012) Nucleated RBC % 0.0 % % (0.0-0.2) PT 15.3 Seconds H Seconds (11.1-14.7) INR 1.2 APTT 36.4 SECONDS SECONDS (22.3-36.8) Sodium 138 mmol/L mmol/L (137-145) Potassium 3.7 mmol/L mmol/L (3.4-5.0) Chloride 101 mmol/L mmol/L (98-107) Carbon Dioxide 30 mmol/L mmol/L (22-30) Anion Gap 7 mmol/L L mmol/L (8-16) BUN 16 mg/dL mg/dL (7-17) Creatinine 0.80 mg/dL mg/dL (0.7-1.0) Estim Creat Clear Calc 58 ml/min ml/min Estimated GFR > 60 (59 - ) Glucose 106 mg/dL mg/dL (65-110) POC Capillary Glucose Hemoglobin A1c Calcium 9.4 mg/dL mg/dL (8.4-10.2) Magnesium Total Bilirubin 0.4 mg/dL mg/dL (0.2-1.3) AST 32 U/L U/L (14-36) ALT 22 U/L U/L (4-35) Alkaline Phosphatase 78 U/L U/L (38-126) Total Protein 8.0 g/dL g/dL (6.3-8.2) Albumin 4.1 g/dL g/dL (3.5-5.1) TSH (Reflex) Erik
[2020-09-29 10:45] LABS: Hematocrit 40.6 % (37.0-47.0); Hemoglobin 12.1 g/dL (12.0-15.0)
[2020-09-29 11:21] LABS: Total Triiodothyronine (T3) 1.16 NG/ML (0.97-1.69)
[2020-09-29] MEDS: BISACODYL 5 MG TABLET EC 10 MG PO (11:41)
[2020-09-29 12:06] LABS: Glucose Point of Care 235 mg/dl (65-105)
[2020-09-29] MEDS: INSULIN ASPART (*BKC) 100 UNITS/ML SUB-Q (12:21)
[2020-09-29 13:40] LABS: IFOB Positive Control Positive; Immunochemical Fecal Occult Bl Positive (N)
[2020-09-29] MEDS: polyethylene glycoL 3350 238 GM BOTTLE PO (16:04)
--- NOTE | 2020-09-29 16:32 | PM.IMPN ---
Progress Note: A&P Assessment and Plan (1) GI (gastrointestinal bleed): Qualifiers: GI bleed type/associated pathology: unspecified gastrointestinal hemorrhage type Qualified Code(s): K92.2 - Gastrointestinal hemorrhage, unspecified Code(s): K92.2 - Gastrointestinal hemorrhage, unspecified Status: Acute Assessment and Plan: presented with positive occult blood at assisted with downward trend in hemoglobin. H&H stable today Occult blood test positive today Gastroenterology has been consulted. planning for colonoscopy tomorrow continue clear liquid diet Eliquis on hold CT scan reviewed with evidence of diverticulosis without diverticulitis (2) Atrial fibrillation: Code(s): I48.91 - Unspecified atrial fibrillation Status: Chronic Assessment and Plan: rate is controlled. Continue low-dose carvedilol Eliquis on hold as above (3) C. difficile colitis: Code(s): A04.72 - Enterocolitis due to Clostridium difficile, not specified as recurrent Status: Acute Assessment and Plan: Recently hospitalized in August 2020 and discharged with oral vancomycin. Has since been started on 14 day course of p.o. vancomycin and p.o. Flagyl per assisted primary care provider continue home oral vancomycin and metronidazole at this time appreciate gastroenterology recommendations regarding continuation of antibiotic therapy (4) Diabetes mellitus: Qualifiers: Diabetes mellitus type: type 2 Diabetes mellitus snf insulin use: without intermodal customer service use Diabetes mellitus complication status: with kidney complications Diabetes mellitus complication detail: with microalbuminuria Qualified Code(s): E11.29 - Type 2 diabetes mellitus with other diabetic kidney complication; R80.9 - Proteinuria, unspecified Code(s): E11.9 - Type 2 diabetes mellitus without complications Status: Acute Assessment and Plan: A1c is 6.5 continue Accu-Cheks, sliding scale insulin, and hypoglycemic protocol (5) COPD (chronic obstructive pulmonary disease): Qualifiers: COPD type: unspecified COPD Qualified Code(s): J44.9 - Chronic obstructive pulmonary disease, unspecified Code(s): J44.9 - Chronic obstructive pulmonary disease, unspecified Status: Acute Assessment and Plan: not in acute exacerbation. Maintaining adequate oxygenation on room air continue inhalers (6) SKLYER (obstructive sleep apnea): Code(s): G47.33 - Obstructive sleep apnea (adult) (pediatric) Status: Acute Assessment and Plan: CPAP at night Subjective Date/time seen: 09/29/20 16:32 Interval history: date of service: 09/29/2020 Mya Hameed is a 79-year-old female with a history atrial fibrillation on chronic anticoagulation, CKD, COPD, diabetes mellitus, SKYLER, and recent C difficile colitis who is seen in follow-up for suspected GI bleed. she says today that she is hurting all over. She has pain throughout her whole body that she reports her chronic and this is not unusual for her. She continues to have loose stools. She says they are slightly more formed than when she was hospitalized last but still quite loose and still with foul odor. She endorses diffuse abdominal cramping. She denies nausea or vomiting. She is tolerating clear liquids. Denies fever or chills. No shortness breath, cough, or chest pain. No dizziness or lightheadedness. Review of Systems Review of Systems: All systems reviewed & are unremarkable except as noted in HPI and below Exam Narrative: Exam Narrative: Ms. Hameed is A well-nourished 79-year-old female who is lying supine in bed. she appears comfortable and is in NARD. Neuro: awake, alert and oriented x4, speech clear, no focal neuro deficits noted HEENMT: normocephalic, atraumatic, EOMI, sclerae anicteric, moist oral mucosa, Neck: supple, no lymphadeno
[2020-09-29 16:53] LABS: Glucose Point of Care 147 mg/dl (65-105)
[2020-09-30] VITALS (8 sets, daily range): BP systolic 114–137; BP diastolic 34–67; PULSE 65–79; RESP 15–23; TEMP 35.9–37.2; O2SAT 96–99
[2020-09-30 06:53] LABS: Hematocrit 36.7 % (37.0-47.0); Hemoglobin 11.3 g/dL (12.0-15.0)
[2020-09-30 07:07] LABS: Anion Gap 7 mmol/L (8-16); Blood Urea Nitrogen 9 mg/dL (7-17); Carbon Dioxide 27 mmol/L (22-30); Chloride 103 mmol/L (98-107); Estimated CRCL calculation 58 ml/min; Estimated Glomerular Filt Rate > 60; Glucose 117 mg/dL (65-110); Potassium 3.4 mmol/L (3.4-5.0); Sodium 137 mmol/L (137-145)
[2020-09-30 07:58] LABS: Glucose Point of Care 125 mg/dl (65-105)
[2020-09-30 10:28] LABS: Glucose Point of Care 136 mg/dl (65-105)
[2020-09-30] MEDS: LACTATED RINGERS 1,000 ML 150 ML IV CONT (10:40)
--- NOTE | 2020-09-30 11:36 | WPDGICN ---
Assessment and Plan Assessment and plan (1) GI (gastrointestinal bleed): Qualifiers: GI bleed type/associated pathology: unspecified gastrointestinal hemorrhage type Qualified Code(s): K92.2 - Gastrointestinal hemorrhage, unspecified Code(s): K92.2 - Gastrointestinal hemorrhage, unspecified Status: Acute Assessment and Plan: EGD with possible biopsy or dilatation or cautery.Colonoscopy with possible biopsy or polypectomy or cautery or injection of substances. GI Consult Note Consult date/time: 09/30/20 11:36 N.B. this consultation was done on September 29, note completed September 30 HPI: May Hameed is a 79 year old female who is a resident of a assisted. She was brought here which was found to have blood in her stool. She does not see anne blood. She has also been somewhat nauseated denies vomiting. She is on therapy for C diff apparently taking vancomycin and Flagyl. She is on Eliquis for atrial fibrillation Review of Systems Review of Systems: All systems reviewed & are unremarkable except as noted in HPI and below PMFSH Past Medical History Medical History Atrial fibrillation C. 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 CKD (chronic kidney disease) stage 3, GFR 30-59 ml/min COPD (chronic obstructive pulmonary disease) Diabetes mellitus Diastolic dysfunction Dyslipidemia associated with type 2 diabetes mellitus Hyperlipidemia Lymphedema SKYLER (obstructive sleep apnea) Surgical History Surgical History H/O cataract extraction History of appendectomy Family History Family History Sibling Family history of gynecological problem Father Malignant neoplasm of prostate Family history of diabetes mellitus in first degree relative Diabetes mellitus, Onset Age: 84 Grandparent Cerebrovascular accident, Onset Age: 65 Mother Family history of Parkinson's disease, Onset Age: 88 Social History Social History Social History: The patient used to smoke cigarettes. The patient admits to me that prior to going to [facility] that she had been taking multiple substances from the daughter that she was living with. The patient stated I was a junky . 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 Her 2 daughters of the [employer] deputy prosecuting attorney for healthcare. The patient desires to be a full code. the patient is now residing at [facility]. Smoking status: Former smoker Tobacco type: cigarettes Alcohol intake: never Substance use: current Substance use type: marijuana Other substance usage details: Edibles Gender identity (if verbalized by the patient): Female Spiritual care concerns: No Meds Home Medications and Allergies Home Medications Medication Instructions Recorded Confirmed Type mecobalamin (vitamin B12) 1,000 1,000 mcg PO DAILY #1 tablet 07/15/20 09/28/20 Rx mcg chewable tablet furosemide [Lasix] 40 mg PO QAM 08/18/20 09/28/20 History guaifenesin 600 mg PO Q12H PRN 08/18/20 09/28/20 History insulin lispro 1 sliding scale dose SUBCUT 08/18/20 09/28/20 History USEASDIRECTD potassium chloride 20 meq PO DAILY 08/18/20 09/28/20 History rosuvastatin [Crestor] 5 mg PO DAILY 08/18/20 09/28/20 History Combivent Respimat 1 puff INHALATION Q4-5H PRN 08/23/20 09/28/20 History acetaminophen [Mapap 650 mg PO Q6H PRN #30 tablet 08/24/20 09/28/20 Rx (acetaminophen)] apixaban [Eliquis] 5 mg PO BID #60 tablet 08/24/20 09/28/20 Rx buspirone 5 mg PO Q12HR #60 tablet 08/24/20 09/28/20 Rx vancomycin 125 mg PO Q6H #23 cap 0
--- NOTE | 2020-09-30 11:46 | SUR.OPER ---
EGD COMPLETED AT 1142, COLONOSCOPY STARTED AT 1148
[2020-09-30] MEDS: metroNIDAZOLE 250 MG TABLET 500 MG PO (14:04)
[2020-09-30] MEDS: ROSUVASTATIN 5 MG TABLET PO (14:04)
[2020-09-30] MEDS: VANCOMYCIN ORAL 125 MG/2.5 ML SYRUP PO ×2 (14:04→17:10)
[2020-09-30] MEDS: SACCHAROMYCES BOULARDII 250 MG CAPSULE PO ×2 (14:04→17:10)
[2020-09-30] MEDS: busPIRone HCL 5 MG TABLET PO (14:05)
[2020-09-30] MEDS: carvediloL 3.125 MG TABLET PO (14:05)
[2020-09-30] MEDS: CYANOCOBALAMIN 1,000 MCG TABLET 1000 MCG PO (14:05)
[2020-09-30] MEDS: POTASSIUM CHLORIDE 10 MEQ TABLET.ER 20 MEQ PO (14:05)
[2020-09-30] MEDS: FUROSEMIDE 40 MG TABLET PO (14:05)
--- NOTE | 2020-09-30 16:46 | P.DS_ITS ---
DS: Admitting Diagnosis Admitting Diagnosis Admitting Diagnosis: GI bleed DS: Discharge Diagnosis Discharge Diagnosis (1) GI (gastrointestinal bleed): Qualifiers: GI bleed type/associated pathology: unspecified gastrointestinal hemorrhage type Qualified Code(s): K92.2 - Gastrointestinal hemorrhage, unspecified Code(s): K92.2 - Gastrointestinal hemorrhage, unspecified Status: Acute Assessment and Plan: presented with positive occult blood at shelter with downward trend in hemoglobin. * Occult blood test positive 09/29 * seen in consultation by Gastroenterology * colonoscopy performed with findings of bleeding diverticulum which was clipped; likely the source of GI bleeding. Also with large polyp that was removed and clipped to prevent bleeding * EGD with no acute findings * Eliquis will be held for 2 days per GI recommendations. avoid NSAIDs and aspirin. * follow-up with GI as an outpatient as needed * diet was advanced and she was able to tolerate. She would benefit from ma intaining high-fiber diet. (2) Normocytic anemia: Code(s): D64.9 - Anemia, unspecified Status: Acute Assessment and Plan: baseline hemoglobin is 10.0-11.0 * H&H remained consistent with baseline (3) Atrial fibrillation: Code(s): I48.91 - Unspecified atrial fibrillation Status: Chronic Assessment and Plan: rate remained controlled. * Continue low-dose carvedilol * Eliquis on hold as above. resume on 10/02/2020 (4) C. difficile colitis: Code(s): A04.72 - Enterocolitis due to Clostridium difficile, not specified as recurrent Status: Acute Assessment and Plan: Recently hospitalized in August 2020 and discharged with oral vancomycin. Per patient, repeat testing was again positive and she is not able to transfer to assisted living facility of her choice until negative result. Has since been started on 14 day course of p.o. vancomycin and p.o. Flagyl per shelter primary care provider * continue home oral vancomycin and metronidazole at this time. She has approximately 5 days left of therapy. * Continue probiotic (5) Diabetes mellitus: Qualifiers: Diabetes mellitus type: type 2 Diabetes mellitus senior svp insulin use: without senior svp use Diabetes mellitus complication status: with kidney complications Diabetes mellitus complication detail: with microalbuminuria Qualified Code(s): E11.29 - Type 2 diabetes mellitus with other diabetic kidney complication; R80.9 - Proteinuria, unspecified Code(s): E11.9 - Type 2 diabetes mellitus without complications Status: Acute Assessment and Plan: A1c is 6.5 * Continue home insulin. (6) COPD (chronic obstructive pulmonary disease): Qualifiers: COPD type: unspecified COPD Qualified Code(s): J44.9 - Chronic obstructive pulmonary disease, unspecified Code(s): J44.9 - Chronic obstructive pulmonary disease, unspecified Status: Acute Assessment and Plan: Not in acute exacerbation. Maintained adequate oxygenation on room air * continue home inhalers (7) SKYLER (obstructive sleep apnea): Code(s): G47.33 - Obstructive sleep apnea (adult) (pediatric) Status: Acute Assessment and Plan: CPAP at night DS: Summary Hospital Course Hospital Course: Date of admission: 09/28/2020 date of discharge: 09/30/2020 May Hameed is a 79-year-old female with a history atr
--- NOTE | 2020-09-30 16:46 | PM.DS ---
DS: Admitting Diagnosis Admitting Diagnosis Admitting Diagnosis: GI bleed DS: Discharge Diagnosis Discharge Diagnosis (1) GI (gastrointestinal bleed): Qualifiers: GI bleed type/associated pathology: unspecified gastrointestinal hemorrhage type Qualified Code(s): K92.2 - Gastrointestinal hemorrhage, unspecified Code(s): K92.2 - Gastrointestinal hemorrhage, unspecified Status: Acute Assessment and Plan: presented with positive occult blood at alf with downward trend in hemoglobin. Occult blood test positive 09/29 seen in consultation by Gastroenterology colonoscopy performed with findings of bleeding diverticulum which was clipped; likely the source of GI bleeding. Also with large polyp that was removed and clipped to prevent bleeding EGD with no acute findings Eliquis will be held for 2 days per GI recommendations. avoid NSAIDs and aspirin. follow-up with GI as an outpatient as needed diet was advanced and she was able to tolerate. She would benefit from maintaining high-fiber diet. (2) Normocytic anemia: Code(s): D64.9 - Anemia, unspecified Status: Acute Assessment and Plan: baseline hemoglobin is 10.0-11.0 H&H remained consistent with baseline (3) Atrial fibrillation: Code(s): I48.91 - Unspecified atrial fibrillation Status: Chronic Assessment and Plan: rate remained controlled. Continue low-dose carvedilol Eliquis on hold as above. resume on 10/02/2020 (4) C. difficile colitis: Code(s): A04.72 - Enterocolitis due to Clostridium difficile, not specified as recurrent Status: Acute Assessment and Plan: Recently hospitalized in August 2020 and discharged with oral vancomycin. Per patient, repeat testing was again positive and she is not able to transfer to assisted living facility of her choice until negative result. Has since been started on 14 day course of p.o. vancomycin and p.o. Flagyl per alf primary care provider continue home oral vancomycin and metronidazole at this time. She has approximately 5 days left of therapy. Continue probiotic (5) Diabetes mellitus: Qualifiers: Diabetes mellitus type: type 2 Diabetes mellitus mcfp insulin use: without mcfp use Diabetes mellitus complication status: with kidney complications Diabetes mellitus complication detail: with microalbuminuria Qualified Code(s): E11.29 - Type 2 diabetes mellitus with other diabetic kidney complication; R80.9 - Proteinuria, unspecified Code(s): E11.9 - Type 2 diabetes mellitus without complications Status: Acute Assessment and Plan: A1c is 6.5 Continue home insulin. (6) COPD (chronic obstructive pulmonary disease): Qualifiers: COPD type: unspecified COPD Qualified Code(s): J44.9 - Chronic obstructive pulmonary disease, unspecified Code(s): J44.9 - Chronic obstructive pulmonary disease, unspecified Status: Acute Assessment and Plan: Not in acute exacerbation. Maintained adequate oxygenation on room air continue home inhalers (7) SKYLER (obstructive sleep apnea): Code(s): G47.33 - Obstructive sleep apnea (adult) (pediatric) Status: Acute Assessment and Plan: CPAP at night DS: Summary Hospital Course Hospital Course: Date of admission: 09/28/2020 date of discharge: 09/30/2020 May Hameed is a 79-year-old female with a history atrial fibrillation on chronic anticoagulation, CKD, COPD, diabetes mellitus, SKYLER, and recent C difficile colitis who presented to the emergency department on 09/28/2020 from [facility] due to concerns for GI bleed after having a cold blood test positive at the facility. Upon presentation to the emergency department, her vital signs were stable, she is afebrile, hemoglobin was 11.4, hematocrit 36.7, additional CBC and BMP unremarkable,
[2020-09-30 16:59] LABS: Glucose Point of Care 131 mg/dl (65-105)
== END 2020-09-30 19:00 ==
LOC: ANHED 13:22 → ANH3MEDSUR 17:10
PROVIDERS: Internal Medicine Gastroenterology; Nurse Practitioner; Physician Assistant; Admitting Provider Internal Medicine; Emergency Provider Emergency Medicine; Visit Provider Internal Medicine
PROC: 0DJ08ZZ Inspection of Upper Intestinal Tract, Via Natural or Artificial Opening Endoscopic (ICD-10-PCS; CPT 43235; principal; 2020-09-30 11:30)
DX: K92.2 Gastrointestinal hemorrhage, unspecified (principal); D12.5 Benign neoplasm of sigmoid colon; A04.72 Enterocolitis due to Clostridium difficile, not specified as recurrent; D64.9 Anemia, unspecified; I48.91 Unspecified atrial fibrillation; E11.22 Type 2 diabetes mellitus with diabetic chronic kidney disease; E78.5 Hyperlipidemia, unspecified; G47.33 Obstructive sleep apnea (adult) (pediatric); G89.29 Other chronic pain; I51.89 Other ill-defined heart diseases; J44.9 Chronic obstructive pulmonary disease, unspecified; N18.30 Chronic kidney disease, stage 3 unspecified; Z79.01 Long term (current) use of anticoagulants; Z87.891 Personal history of nicotine dependence; Z79.4 Long term (current) use of insulin
CPT/HCPCS: 45385; 43235; 36415; 74177; 80048; 80053; 82274; 82948; 83036; 83735; 84439; 84443; 84480; 85014; 85018; 85025; 85610; 85730; 86850; 86900; 86901; 87015; 87045; 87046; 87269; 87272; 87427; 88305; 94640; 96360; 96361; 99285; A9270; G0378; J1815; J2704; J7120; Q9967

== ENCOUNTER 2021-01-19 08:40 | Outpatient (CLI) | payer MEDICARE, MEDICAID, SELFPAY ==
[2021-01-19 09:29] LABS: Basophils Percent Auto 0.5 % (0.2-1.2); Eosinophils Absolute Auto 0.1 K/mm3 (0-0.3); Eosinophils Percent Auto 1.6 % (0-4.4); Hemoglobin 12.1 g/dL (12.0-15.0); Immature Granulocyte Absolute 0.04 K/mm3 (0.00-0.031); Immature Granulocyte Percent A 0.5 % (0-0.5); Lymphocytes Absolute Auto 2.72 K/mm3 (0.9-3.2); Lymphocytes Percent Auto 36.4 % (18.3-44.2); Mean Corpuscular HGB Conc 31.8 g/dl (32-36); Mean Corpuscular Hemoglobin 28.1 pg (26-34); Mean Corpuscular Volume 88.2 fl (80-100); Mean Platelet Volume 9.8 fl (7.4-10.4); Monocytes Absolute Auto 0.5 K/mm3 (0.1-0.6); Platelet Count Result 249 k/mm3 (150-375); Red Blood Count 4.31 M/mm3 (4.2-5.4); Red Cell Distribution Width 13.8 % (11.5-14.5); White Blood Count 7.5 K/mm3 (4.5-10.0)
[2021-01-19 09:32] LABS: Alanine Aminotransferase 19 U/L (4-35); Albumin Level 4.2 g/dL (3.5-5.1); Alkaline Phosphatase 61 U/L (38-126); Anion Gap 6 mmol/L (8-16); Aspartate Amino Transferase 23 U/L (14-36); Bilirubin,Total 0.5 mg/dL (0.2-1.3); Blood Urea Nitrogen 28 mg/dL (7-17); Calcium 9.4 mg/dL (8.4-10.2); Carbon Dioxide 30 mmol/L (22-30); Chloride 104 mmol/L (98-107); Cholesterol 175 mg/dL (0-200); Estimated Glomerular Filt Rate > 60; Glucose 111 mg/dL (65-110); HDL Direct 55 mg/dL; Potassium 4.3 mmol/L (3.4-5.0); Sodium 140 mmol/L (137-145); Triglycerides 135 mg/dL (<150)
[2021-01-19 09:42] LABS: LDL Cholesterol Direct 87 mg/dL
[2021-01-19 09:54] LABS: Vitamin D 25 Hydroxy 60.8 ng/mL
[2021-01-19 09:56] LABS: Creatinine Urine 99.6 mg/dL
[2021-01-19 12:56] LABS: MALB Creatinine Ratio 238.5 mg/g (0-30); Microalbumin Urine Random 237.5 mg/L (0-16.7)
[2021-01-19 13:15] LABS: Hemoglobin A1C 6.6 % (<5.7)
== END 2021-01-19 08:41 | disposition home or self-care (01) ==
PROVIDERS: PCP Internal Medicine; Visit Provider Internal Medicine
DX: E55.9 Vitamin D deficiency, unspecified (principal); I48.91 Unspecified atrial fibrillation; N18.30 Chronic kidney disease, stage 3 unspecified; J44.9 Chronic obstructive pulmonary disease, unspecified; E11.29 Type 2 diabetes mellitus with other diabetic kidney complication; R80.9 Proteinuria, unspecified; E11.69 Type 2 diabetes mellitus with other specified complication; E78.5 Hyperlipidemia, unspecified
CPT/HCPCS: 36415; 80053; 80061; 82043; 82306; 83036; 84443; 85025

== ENCOUNTER 2023-01-20 09:20 | Outpatient (CLI) | payer MEDICARE, MEDICAID, SELFPAY ==
--- NOTE | ~2023-01-20 | US_ITS ---
EXAMINATION: US arterial ankle brachial ind DATE: 01/20/2023 10:45 INDICATION: Peripheral vascular disease with claudication and lower limb edema TECHNIQUE: Segmental pressures and plethysmographic and Doppler waveforms of the brachial and lower e xtremity arteries were obtained. COMPARISON: None. FINDINGS: Right and left brachial artery pressures of 138 mm Hg and 132 mm Hg, respectively, are concordant (no rmal difference <= 30 mmHg). The right ankle-brachial index (LAKESHA) is 1.33 (normal >= 0.9-1.0). The right great toe-brachial index (TBI) is 0.67 (normal >= 0.65). Arterial Doppler waveforms are biphasic with brisk systolic upstrokes at both right posterior tibial and dorsalis pedis arteries. The left LAKESHA is 1.32. The left TBI is 1.24. Arterial Doppler waveforms are biphasic with brisk systol ic upstrokes at both left posterior tibial and dorsalis pedis arteries. IMPRESSION: 1. No significant arterial occlusive disease with normal bilateral ABIs and TBIs. Reviewed, dictated and finalized at location A. RAM HOST IMPRESSION: 1. No significant arterial occlusive disease with normal bilateral ABIs and TBI s.
--- NOTE | ~2023-01-20 | US_ITS ---
Duplex Sonography of the bilateral lower extremities: Indication: Swelling Sagittal and transverse B-mode images as well as color-flow imaging were performed on the right and l eft femoral and popliteal veins. B-mode examination was done without and with compression in the tra nsverse plane. There is good visualization of the bilateral common femoral, proximal profunda femora l, superficial femoral, greater saphenous, and popliteal veins. Normal flow was seen on color-flow im aging. Normal compressibility was demonstrated. Visualized calf veins are also patent. Impression: No evidence of deep vein thrombosis involving either lower extremity Reviewed, dictated and finalized at location M. ET EDITOR Impression: No evidence of deep vein thrombosis involving either lower extremit y
== END 2023-01-20 09:21 | disposition home or self-care (01) ==
LOC: ANHIMG 09:23
PROVIDERS: PCP Physician Assistant; Visit Provider Physician Assistant
DX: R60.0 Localized edema (principal); M79.89 Other specified soft tissue disorders
CPT/HCPCS: 93922; 93970